=== PATIENT | female | born 1955 | race Caucasian/White ===

== ENCOUNTER 2018-02-07 18:02 | Emergency (ER) | payer BC, OTHER ==
[2018-02-07 19:07] VITALS: BMI 31.9
--- NOTE | 2018-02-07 19:35 | PDOC ---
History of Present Illness - General Chief Complaint: Diarrhea Stated Complaint: DIARRHEA - History of Present Illness Initial Comments: The patient is a 62F w/ a history of HTN, HLD, and cerebral aneurysm x3 s/p coil x2 who presents for evaluation of 3 weeks of nausea and watery diarrhea. She reports that after every meal she, approximately 15-30 min later she will have a diarrheal episode. She endorses associated pelvic cramping during bowel movements but otherwise denies abdominal pain. She denies fevers, emesis, or blood in her stool. She is unsure if her stool is foul smelling 2/2 smoking while in the bathroom. She denies ever having had this happen before. She denies a history of IBS, diverticulitis, or diarrheal disease. She reports a history of constipation. She reports having a colonoscopy several months ago that was normal per the patient. She denies chest pain, SOB, dysuria, hematuria, or changes in sensation. She denies sick contacts 02/07/18 19:55 Past History - Past Medical History Allergies/Adverse Reactions: Allergies Allergy/AdvReac Type Severity Reaction Status Date / Time No Known Allergies Allergy Verified 02/07/18 19:08 COPD: No HTN: Yes Hypercholesterolemia: Yes Psychiatric Problems: Yes (anxiety) Other medical history: brain aneursysm x 3 - Suicide/Smoking/Psychosocial Hx Smoking History: Never smoked Have you smoked in the past 12 months: No Information on smoking cessation initiated: No Hx Alcohol Use: No Drug/Substance Use Hx: No Substance Use Type: None Review of Systems - Review of Systems Able to Perform ROS?: Yes Comments:: GENERAL/CONSTITUTIONAL: No fever or chills. No weakness HEAD, EYES, EARS, NOSE AND THROAT: No change in vision. No ear pain or discharge. No sore throat CARDIOVASCULAR: No chest pain or shortness of breath RESPIRATORY: No cough, wheezing, or hemoptysis GASTROINTESTINAL: per HPI GENITOURINARY: No dysuria, frequency, or change in urination MUSCULOSKELETAL: No joint or muscle swelling or pain. No neck or back pain SKIN: No rash NEUROLOGIC: No headache, vertigo, loss of consciousness, or change in strength/ sensation ENDOCRINE: No increased thirst. No abnormal weight change HEMATOLOGIC/LYMPHATIC: No anemia, easy bleeding, or history of blood clots ALLERGIC/IMMUNOLOGIC: No hives or skin allergy 02/07/18 19:35 *Physical Exam - Vital Signs Last Vital Signs Temp Pulse Resp BP Pulse Ox 98.7 F 69 17 142/64 97 02/07/18 19:03 02/07/18 19:03 02/07/18 19:03 02/07/18 19:03 02/07/18 19:03 - Physical Exam Comments: GENERAL: Awake, alert, and fully oriented, in no acute distress HEAD: No signs of trauma, normocephalic, atraumatic EYES: PERRL, EOMI, sclera anicteric, conjunctiva clear ENT: Hearing grossly normal, nares patent, oropharynx clear without exudates NECK: Normal ROM, supple LUNGS: No distress, speaks full sentences, mild b/l diffuse wheeze HEART:Regular rate and rhythm, normal S1 and S2, no murmurs appreciated, peripheral pulses normal and equal bilaterally ABDOMEN: Soft, LLQ TTP without rebound or guarding, not distended, normoactive bowel sounds EXTREMITIES : Normal inspection, Normal range of motion, no edema. No clubbing or cyanosis NEUROLOGICAL: Cranial nerves II through XII grossly intact. Normal speech, normal gait, no focal sensorimotor deficits SKIN: Warm, Dry, normal turgor, no rashes or lesions noted 02/07/18 19:35 ED Treatment Course - LABORATORY CBC & Chemistry Diagram: 02/07/18 20:15 02/07/18 20:15 Medical Decision Making - Medical Decision Making The patient is a 62F w/ a history of HTN, HLD, and cerebral aneurysm who present for evaluation of 3 weeks of nausea and diarrhea ED Course CMP, CBC, Lipase CT A&P w/ contrast 1L NS 02/07/18 20:00 Lytes wnl Hgb 13.9, no anemia No leukocytosis 02/07/18 21:24 CT with evidence of ascending and transverse mucosal thickening which could represent early focal colitis. Diverticula w/o diverticulitis. Patient w/o fever Pain resolved Patient to follow up with her PCP tomorrow. Will provide patient with results of her CT and GI referral as well. Work note provided Plan for D/C w/ PCP and GI f/u Return precautions given Plan discussed with patient who is in agreement and verbalized understanding Dispo: Home 02/07/18 23:32 *DC/Admit/Observation/Transfer Diagnosis at time of Disposition: Colitis Diarrhea Qualifiers: Diarrhea type: unspecified type Qualified Code(s): R19.7 - Diarrhea, unspecified - Discharge Dispostion Disposition: HOME Condition at time of disposition: Improved Decision to Admit order: No - Referrals Referrals: Abdirashid Rubin [Primary Care Provider] - Melvin Yee MD [Staff Physician] - - Patient Instructions Printed Discharge Instructions: DI for Colitis Additional Instructions: You were seen in the Emergency Department today for evaluation of diarrhea. Please review the handouts provided at discharge. Please follow up with your primary care provider and Gastroenterology. Return to the Emergency Department if you develop fevers/chills, vomiting, worsening diarrhea, or any new/ concerning symptoms. - Post Discharge Activity Forms/Work/School Notes: Back to Work
[2018-02-07] MEDS ORDERED: SODIUM CHLORIDE 0.9% 500 ML INFUS.BAG IV ONE (19:50)
[2018-02-07 20:26] LABS: HEMATOCRIT 40.5 % (32.4-45.2); HEMOGLOBIN 13.9 GM/dL (10.7-15.3); MCH 32.1 pg (25.7-33.7); MCHC 34.4 g/dl (32.0-36.0); MEAN CELL VOLUME 93.2 fl (80-96); MEAN PLT VOLUME 9.2 fl (7.5-11.1); PLATELET COUNT 254 K/MM3 (134-434); RBC 4.35 M/mm3 (3.60-5.2); RDW 13.3 % (11.6-15.6); WHITE BLOOD COUNT 10.2 K/mm3 (4.0-10.0)
[2018-02-07 21:08] LABS: ALBUMIN 3.8 g/dl (3.4-5.0); ALK PHOS 74 U/L (45-117); ANION GAP 5 MMOL/L (8-16); BILIRUBIN,TOTAL 0.4 mg/dL (0.2-1); BLOOD UREA NITROGEN 12 mg/dL (7-18); CALCIUM 8.9 mg/dL (8.5-10.1); CHLORIDE 113 mmol/L (98-107); CO2 26 mmol/L (21-32); CREATININE 0.8 mg/dL (0.55-1.3); GLUCOSE,RANDOM 115 mg/dL (74-106); LIPASE 143 U/L (73-393); POTASSIUM 3.8 mmol/L (3.5-5.1); SGOT/AST 16 U/L (15-37); SGPT/ALT 17 U/L (13-61); SODIUM 143 mmol/L (136-145); TOT PROT 7.2 g/dl (6.4-8.2)
--- NOTE | 2018-02-07 21:52 | PDOC ---
Attending Attestation - [facility] HPI: 02/07/18 23:01 The patient is a 62 year old female, with a significant past medical history of HTN, HLD, and brain aneurysm x3, who presents to the emergency department with 3 weeks of nausea and diarrhea. She reports loose,watery stool about 30-40 minutes after PO intake. She reports associated lower abdominal pain with bowel movements. She states she saw her PCP this week who prescribed Flagyl which she reportedly picked up tdoay but has not started. She states she is not nauseous now. She reports her last BM was loose, nonbloody at approximately 4:30PM. The patient denies chest pain, shortness of breath, headache and dizziness. The patient denies fever, chills, vomit, and constipation. The patient denies dysuria, frequency, urgency and hematuria. Allergies: NKDA - Physicial Exam PE: 02/07/18 23:02 GENERAL: Well developed, well nourished. Awake and alert. No acute distress. HEENT: Normocephalic, atraumatic. PERRLA, EOMI. No conjunctival pallor. Sclera are non- icteric. Moist mucous membranes. Oropharynx is clear. NECK: Supple. Full ROM. No JVD. Carotid pulses 2+ and symmetric, without bruits. No thyromegaly. No lymphadenopathy. CARDIOVASCULAR: Regular rate and rhythm. No murmurs, rubs, or gallops. Distal pulses are 2+ and symmetric. PULMONARY: No evidence of respiratory distress. Lungs clear to auscultation bilaterally. No wheezing, rales or rhonchi. ABDOMINAL: Soft. Non-tender. Non-distended. No rebound or guarding. No organomegaly. Normoactive bowel sounds. MUSCULOSKELETAL Normal range of motion at all joints. No bony deformities or tenderness. No CVA tenderness. EXTREMITIES: No cyanosis. No clubbing. No edema. No calf tenderness. SKIN: Warm and dry. Normal capillary refill. No rashes. No jaundice. NEUROLOGICAL: Alert, awake, appropriate. Cranial nerves 2-12 intact. Normoreflexic in the upper and lower extremities. Normal speech. Toes are down-going bilaterally. Gait is normal without ataxia. PSYCHIATRIC: Cooperative. Good eye contact. Appropriate mood and affect. - Medical Decision Making EXAM: CT abdomen and pelvis with IV contrast. Impression: 1. Single sigmoid diverticulum, without evidence of diverticulitis. 2. Trace of free fluid within the pelvis which is not a normal finding in a postmenopausal woman. 3. Questionable mild circumferential mucosal thickening involving the ascending and transverse colons which could represent very early focal colitis. The differential diagnosis would include inflammatory etiologies such as Crohn's, infectious etiology, or ischemic. Clinical correlation is recommended. 4. Otherwise, unremarkable CT of the abdomen and pelvis. THIS DOCUMENT HAS BEEN ELECTRONICALLY SIGNED Chris Guillen MD 02/07/2018 21:46 EST 02/07/18 23:02 Documentation prepared by Grecia Raymundo, acting as medical chief technician for Eva Rodríguez MD <Grecia Raymundo - Last Filed: 02/07/18 23:01> - Resident Resident Name: Manuel Woods - ED Attending Attestation I have performed the following: I have examined & evaluated the patient, The case was reviewed & discussed with the resident, I agree w/resident's findings & plan, Exceptions are as noted - Medical Decision Making 02/07/18 23:40 she is not vomiting and has an appt with her PCP tomorrow -she has benign exam and is currently comfortable -no fever and her labs are essentially unremarkable -she already has a prescription for flagyl IMP probable early colitis plan tomorrow see PCP and take antibiotics <Eva Rodríguez - Last Filed: 02/07/18 23:50>
[2018-02-08 00:10] VITALS: BP 131/89; PULSE 70; TEMP 97.9
== END 2018-02-08 00:10 | disposition home or self-care (01) ==
LOC: JER 18:02
DX: K52.9 Noninfective gastroenteritis and colitis, unspecified (principal); I10 Essential (primary) hypertension; E78.5 Hyperlipidemia, unspecified; F41.9 Anxiety disorder, unspecified; F17.210 Nicotine dependence, cigarettes, uncomplicated; Z86.79 Personal history of other diseases of the circulatory system
CPT/HCPCS: 36415; 74177-TC; 80053; 83690; 85027; 99282-25

== ENCOUNTER 2018-04-20 21:24 | Emergency (ER) | payer BC, OTHER ==
[2018-04-20] MEDS ORDERED: ALBUTEROL SO4 2.5/IPRATROPIUM 0.5 INH SOL 3 ML VIAL.NEB. NEB ONE ×2 (21:34→22:16)
[2018-04-20 21:36] VITALS: BP 98/68; PULSE 76; TEMP 97.6; BMI 30.7
--- NOTE | 2018-04-20 21:36 | PDOC ---
Rapid Medical Evaluation Chief Complaint: Respiratory Medical Evaluation: Allergies Allergy/AdvReac Type Severity Reaction Status Date / Time No Known Allergies Allergy Verified 02/07/18 19:08 04/20/18 21:31 I have performed a brief in-person evaluation of this patient. The patient presents with a chief complaint of:cough / no fevers/ + phlegm clear/ Pertinent physical exam findings: cough / deep cough with wheezing I have ordered the following: CXR/ Duoneb The patient will proceed to the ED for further evaluation. Discharge Disposition - Diagnosis Cough - Referrals - Patient Instructions - Post Discharge Activity
[2018-04-20] MEDS ORDERED: DEXAMETHASONE LIQUID 0.5 MG/5 ML 240 ML BULK BOTTLE PO ONE (22:10)
--- NOTE | 2018-04-20 22:13 | PDOC ---
History of Present Illness - General Chief Complaint: Respiratory Stated Complaint: Shortness of Breath Time Seen by Provider: 04/20/18 22:06 - History of Present Illness Initial Comments: 04/20/18 22:12 63-year-old female with intermittent cough getting worse over the last month. She has a past medical history significant for hypertension. She was treated for bronchitis with Bactrim which did not help her. She was also given a 3 day course of prednisone which was not helpful. She continues to cough. 04/20/18 22:12 Past History - Past Medical History Allergies/Adverse Reactions: Allergies Allergy/AdvReac Type Severity Reaction Status Date / Time No Known Allergies Allergy Verified 02/07/18 19:08 Home Medications: Ambulatory Orders Albuterol Sulfate Inhaler - [Ventolin HFA Inhaler -] 1 - 2 inh PO Q4H PRN #1 inhaler 04/20/18 Azithromycin [Zithromax -] 250 mg PO UTDICT #6 tab 04/20/18 COPD: No HTN: Yes Hypercholesterolemia: Yes Psychiatric Problems: Yes (anxiety) Other medical history: ANEURYSM X 2 - Suicide/Smoking/Psychosocial Hx Smoking History: Never smoked Have you smoked in the past 12 months: No Information on smoking cessation initiated: No Hx Alcohol Use: No Drug/Substance Use Hx: No Substance Use Type: None Review of Systems - Review of Systems Constitutional: No: Fever Respiratory: Yes: Cough, Wheezing *Physical Exam - Vital Signs Last Vital Signs Temp Pulse Resp BP Pulse Ox 97.6 F 76 16 98/68 96 04/20/18 21:31 04/20/18 21:31 04/20/18 21:31 04/20/18 21:31 04/20/18 21:31 - Physical Exam Comments: 04/20/18 22:12 HEAD: NC/AT EYES: Conjuntiva clear Ears: Canals and TM's normal NOSE: No d/c THROAT: Moist mucous membrances, oral pharanx clear, uvula midline NECK: Supple without adenopathy CARDIAC: S1 S2 LUNGS: Diffuse wheezing ABDOMEN: Soft NT ND MS: Full ROM in all joints without edema NEUROLOGIC: No gross sensory or motor deficits, NVID SKIN: Normal color and temperature no lesions or rashes Moderate Sedation - Procedure Monitoring Vital Signs: Procedure Monitoring Vital Signs Temperature 97.6 F 04/20/18 21:31 Pulse Rate 76 04/20/18 21:31 Respiratory Rate 16 04/20/18 21:31 Blood Pressure 98/68 04/20/18 21:31 O2 Sat by Pulse Oximetry (%) 96 04/20/18 21:31 Medical Decision Making - Medical Decision Making 04/20/18 22:31 cxr nad 04/20/18 22:56 cleared after 3rd duo neb *DC/Admit/Observation/Transfer Diagnosis at time of Disposition: Cough, Asthmatic bronchitis - Discharge Dispostion Disposition: HOME Condition at time of disposition: Improved Decision to Admit order: No - Referrals Referrals: Abdirashid Rubin [Primary Care Provider] - - Patient Instructions Printed Discharge Instructions: DI for Acute Bronchitis Additional Instructions: Return to the emergency room should symptoms worsen or go unresolved. Please the use the inhaler as directed. Every 4 hours only if you feel you are wheezing and you are short of breath. Please take the antibiotics as directed and finish the entire course. Follow up with her primary care physician in 2-3 days for further evaluation and treatment options. - Post Discharge Activity
[2018-04-20] MEDS ORDERED: DEXAMETHASONE SOD PHOSPHATE 10 MG/1 ML VIAL ONE (22:16)
[2018-04-20] MEDS: ALBUTEROL SO4 2.5/IPRATROPIUM 0.5 INH SOL 3 ML VIAL.NEB. NEB SCH ×3 (22:27→22:45)
== END 2018-04-20 23:07 | disposition home or self-care (01) ==
LOC: JERFT 21:24
PROC: 3E0F7GC Introduction of Other Therapeutic Substance into Respiratory Tract, Via Natural or Artificial Opening (ICD-10-PCS; principal; 2018-04-20)
PROC: 3E0F7GC Introduction of Other Therapeutic Substance into Respiratory Tract, Via Natural or Artificial Opening (ICD-10-PCS; 2018-04-20)
PROC: 3E0F7GC Introduction of Other Therapeutic Substance into Respiratory Tract, Via Natural or Artificial Opening (ICD-10-PCS; 2018-04-20)
DX: J45.901 Unspecified asthma with (acute) exacerbation (principal)
CPT/HCPCS: 71046-TC-FY; 99281-25

== ENCOUNTER 2018-05-08 13:41 | Observation (INO) | payer BC, OTHER ==
[2018-05-08] MEDS ORDERED: methylPREDNISolone NA SUCC 125 MG/2 ML VIAL ONE (13:46)
[2018-05-08] MEDS ORDERED: ALBUTEROL SO4 2.5/IPRATROPIUM 0.5 INH SOL 3 ML VIAL.NEB. NEB ONE ×3 (13:49→19:54)
[2018-05-08] MEDS ORDERED: methylPREDNISolone NA SUCC 125 MG/2 ML VIAL IVPUSH ONE (13:49)
--- NOTE | 2018-05-08 13:54 | PDOC ---
History of Present Illness - General Chief Complaint: Respiratory Distress Stated Complaint: DIFFICULTY BREATHING Time Seen by Provider: 05/08/18 13:52 - History of Present Illness Initial Comments: 05/08/18 14:44 The patient is a 63 year old female with a history of HTN, HLD, who presents for evaluation of shortness of breath. The patient reports acute onset of worsening difficulty breathing with associated wheezing 1-2 hours prior to presentation to the ED. She notes that she has had similar symptoms in the past most recent of which was 2-3 weeks ago. She states that she received steroids and nebulizer treatments at that time with improvement in her symptoms. She states that she has never had a formal diagnosis of asthma or COPD but does not that she is a daily smoker. She otherwise denies fevers, chills, chest pain, nausea, vomiting, abdominal pain, or changes with urination or bowel movements. Past History - Past Medical History Allergies/Adverse Reactions: Allergies Allergy/AdvReac Type Severity Reaction Status Date / Time No Known Allergies Allergy Verified 05/08/18 13:48 Home Medications: Ambulatory Orders Alprazolam [Xanax] 0.25 mg PO PRN PRN 05/08/18 Amlodipine Besylate [Norvasc -] 5 mg PO DAILY 05/08/18 Carvedilol 12.5 mg PO BID 05/08/18 Sertraline HCl 75 mg PO DAILY 05/08/18 Simvastatin 20 mg PO HS 05/08/18 Albuterol Sulfate Inhaler - [Ventolin HFA Inhaler -] 1 - 2 inh PO Q4H PRN #1 inhaler 05/09/18 Nicotine Patch [Nicoderm Patch -] 21 mg TD DAILY 10 Days #10 patch 05/09/18 Pantoprazole Sodium [Protonix -] 40 mg PO DAILY #10 tablet.ec 05/09/18 levoFLOXacin [Levaquin] 750 mg PO DAILY 4 Days #4 tab 05/09/18 predniSONE [Deltasone -] 40 mg PO DAILY 4 Days #8 tablet 05/09/18 COPD: No HTN: Yes Hypercholesterolemia: Yes Psychiatric Problems: Yes (anxiety) - Immunization History Immunization Up to Date: Yes - Suicide/Smoking/Psychosocial Hx Smoking History: Current every day smoker Have you smoked in the past 12 months: No Information on smoking cessation initiated: No Hx Alcohol Use: No Drug/Substance Use Hx: No Substance Use Type: None Review of Systems - Review of Systems Comments:: 05/08/18 14:47 Constitutional: No fevers, chills, fatigue, malaise HEENT: No Rhinorrhea, nasal congestion, visual changes Cardiovascular: No chest pain, syncope, palpitations, lightheadedness Respiratory: Cough, SOB. No Hemoptysis, Gastrointestinal: No Abdominal pain, Nausea, Vomiting, Constipation, Diarrhea, Melena Genitourinary: No Dysuria, Frequency, Urgency, Hesitancy, Hematuria, Flank pain Musculoskeletal: No Myalgia, arthralgia Skin: No rashes, itching, bruising, pallor Neurologic: No Headache, Dizziness, Numbness, Weakness, or Tingling Psychiatric: No Hallucinations. No SI or HI *Physical Exam - Vital Signs Last Vital Signs Temp Pulse Resp BP Pulse Ox 98.3 F 112 H 22 H 129/90 94 L 05/08/18 13:48 05/08/18 13:48 05/08/18 13:48 05/08/18 13:48 05/08/18 13:48 - Physical Exam Comments: 05/08/18 14:47 General Appearance: Nourished. No Apparent Distress HEENT: No Pharyngeal Erythema, Tonsillar Exudate, Tonsillar Erythema Neck: No Cervical Lymphadenopathy Respiratory/Chest: Diffuse inspiratory and expiratory wheezing noted on exam. No Crackles, Rales, Rhonchi, Cardiovascular: Regular Rhythm, Regular Rate. No Murmur, Gallops, Rubs Gastrointestinal/Abdominal: Normal Bowel Sounds, Soft. No Guarding, Rebound, Tenderness Musculoskeletal: No CVA Tenderness Extremity: Normal Capillary Refill Integumentary: Normal Color, Dry, Warm Neurologic: Fully Oriented, Alert, Normal Mood/Affect, Normal Response, Moderate Sedation - Procedure Monitoring Vital Signs: Procedure Monitoring Vital Signs Temperature 98.3 F 05/08/18 13:48 Pulse Rate 112 H 05/08/18 13:48 Respiratory Rate 22 H 05/08/18 13:48 Blood Pressure 129/90 05/08/18 13:48 O2 Sat by Pulse Oximetry (%) 94 L 05/08/18 13:48 Heart Score/ECG Review #1 ECG reviewed & interpreted by me at: 14:48 General ECG Interpretation: Sinus Rhythm, Normal Rate, Normal Intervals, No acute ischemic changes ED Treatment Course - LABORATORY CBC & Chemistry Diagram: 05/09/18 06:35 05/09/18 06:35 - RADIOLOGY Radiology Studies Ordered: Category Date Time Status CHEST X-RAY PORTABLE* [RAD] Stat Radiology 05/08/18 13:49 Ordered Medical Decision Making - Medical Decision Making 05/08/18 14:48 The patient is a 63 year old female with a history of HTN, HLD, who presents for evaluation of shortness of breath. Differential includes but is not limited to: Reactive Airway Disease, COPD, Pneumonia, Infectious, Metabolic Derangement. Given the patient's history and physical exam, we will obtain a cbc, cmp, chest plain film, ekg to evaluate further. We will treat with duonebs and solumedrol and continue to monitor and reassess while here in the ED. 05/08/18 16:43 CBC, cmp were unremarkable. Chest plain film is unremarkable. The patient continues to have diffuse expiratory wheezing on exam despite medicating with solumedrol and duonebs. The patient continues to desaturate to 92% on RA despite medication here in the ED. The patient will require admission for further management given her persistent symptoms despite treatment here in the ED. We discussed the case with the admitting team who accepted the patient for admission. *DC/Admit/Observation/Transfer Diagnosis at time of Disposition: Shortness of breath - Discharge Dispostion Disposition: HOME Condition at time of disposition: Good Decision to Admit order: Yes - Prescriptions - Referrals - Patient Instructions - Post Discharge Activity
--- NOTE | 2018-05-08 14:00 | PDOC ---
Attending Attestation - Resident Resident Name: Hilario Vernon - HPI HPI: 05/08/18 14:32 Pt presents to the ED complaining of a several day history of wheezing, shortness of breath and non productive cough that became acutely worse today. Denies fever. Has used albuterol inhaler 3 times in the last hour with no relief. Patient is a smoker, but denies prior history of lung pathology. - Physicial Exam PE: 05/08/18 14:35 Pt is alert and tachypneic and appears to be in moderate respiratory distress. + diffuse wheezing bilaterally with good air entry. Speaking in complete sentences. - Medical Decision Making 05/08/18 14:36 Pt presents to the ED complaining of wheezing and shortness of breath. Improving with nebs and steroids in the ED. Labs are within normal limits. No history of asthma or COPD, but is a smoker and has had multiple episodes of wheezing that improve with albuterol. Will check CXR, continue neb treatments, discharge home with nebs and steroids vs admission for continued nebs and steroids depending on ED course. 05/08/18 14:36
[2018-05-08 14:04] LABS: BASO % 1.5 % (0-2.0); HEMATOCRIT 42.5 % (32.4-45.2); HEMOGLOBIN 14.2 GM/dL (10.7-15.3); LYMPH % 27.6 % (8-40); MCH 31.6 pg (25.7-33.7); MCHC 33.4 g/dl (32.0-36.0); MEAN CELL VOLUME 94.7 fl (80-96); MEAN PLT VOLUME 8.7 fl (7.5-11.1); NEUT % 65.9 % (42.8-82.8); PLATELET COUNT 221 K/MM3 (134-434); RBC 4.48 M/mm3 (3.60-5.2)
[2018-05-08 14:36] LABS: ALBUMIN 3.8 g/dl (3.4-5.0); ALK PHOS 71 U/L (45-117); ANION GAP 5 MMOL/L (8-16); BILIRUBIN,TOTAL 0.5 mg/dL (0.2-1); BLOOD UREA NITROGEN 13 mg/dL (7-18); CALCIUM 8.3 mg/dL (8.5-10.1); CHLORIDE 110 mmol/L (98-107); CO2 26 mmol/L (21-32); CREATININE 0.9 mg/dL (0.55-1.3); GLUCOSE,RANDOM 142 mg/dL (74-106); SGOT/AST 19 U/L (15-37); SGPT/ALT 20 U/L (13-61); SODIUM 141 mmol/L (136-145)
[2018-05-08] MEDS ORDERED: ALBUTEROL SO4 0.083% IH SOL 2.5 MG/3 ML VIAL.NEB. NEB ONE ×2 (15:13→15:15)
--- NOTE | 2018-05-08 18:00 | HP ---
CHIEF COMPLAINT: Shortness of breath PCP: Dr. Rubin HISTORY OF PRESENT ILLNESS: Patient is a 63 year old female with history of hypertension, hyperlipidemia, anxiety, cerebral aneurysm (s/p endovascular coil 08/2017) presents with complaint of shortness of breath intermittently for the past month. Initially she was seen by her primary care provider and prescribed Bactrim which she admits compliance with 10 day course, and prednisone 3 day course which she was not compliant with, due to palpitations. She was seen two weeks ago at [facility] for similar symptoms, and was prescribed Azithromycin 5 day course which she admits compliance with, and Albuterol inhaler. Patient noticed shortness of breath this morning after drinking coffee, and was not palliated with Albuterol inhaler. Patient endorses cough productive with white-colored sputum, nasal congestion, and sneezing. Patient denies fevers, chills, or sick contacts. Of note, patient endorses liquid brown diarrhea that has been intermittent for the past 4 months. 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 She endorses three episodes of diarrhea today without ravi blood. Denies vomiting or abdominal pain. ER course was notable for: (1) DuoNebs X3 amps, Solu-Medrol 125mg, Albuterol nebulizer treatment X1 (2) Chest Xray- no acute pathology noted (3) Recent Travel: denies PAST MEDICAL HISTORY: hypertension, hyperlipidemia, anxiety, cerebral aneurysm ( s/p coil 08/2017) PAST SURGICAL HISTORY: bilateral tubal ligation at 23 years old, cerebral aneurysm endovascular coiling in 2017. Social History: Smoking: admits smoking 1/2 -1 whole pack per day for past 40 years. Alcohol: admits drinking socially two - three mixed "fruit-flavored" drinks. Drugs: denies illicit drug use Works: patient pediatric acute care unit nurse with [employer] Family History: No history of malignancy noted. Mother: at 92 years old, dementia Father: in his 80s, ?[place] Allergies: Patient denies any food, or medication allergies. No Known Allergies Allergy (Verified 05/08/18 13:48) HOME MEDICATIONS: Home Medications Medication Instructions Recorded Amlodipine Besylate [Norvasc -] 5 mg PO DAILY 05/08/18 Carvedilol 12.5 mg PO BID 05/08/18 Sertraline HCl 75 mg PO DAILY 05/08/18 Simvastatin 20 mg PO HS 05/08/18 REVIEW OF SYSTEMS CONSTITUTIONAL: Absent: fever, chills, diaphoresis, generalized weakness, malaise, loss of appetite, weight change HEENT: Admits: rhinnorhea, nasal congestion. Absent: throat pain, throat swelling, difficulty swallowing, mouth swelling, ear pain, eye pain, visual changes CARDIOVASCULAR: Absent: chest pain, syncope, palpitations, irregular heart rate, lightheadedness , peripheral edema RESPIRATORY: Admits: cough, shortness of breath. Absent: dyspnea with exertion, orthopnea, wheezing, stridor, hemoptysis GASTROINTESTINAL: Admits: nausea, diarrhea. Absent: abdominal pain, abdominal distension, vomiting , constipation, melena, hematochezia GENITOURINARY: Absent: dysuria, frequency, urgency, hesitancy, hematuria, flank pain, genital pain MUSCULOSKELETAL: Absent: myalgia, arthralgia, joint swelling, back pain, neck pain SKIN: Absent: rash, itching, pallor HEMATOLOGIC/IMMUNOLOGIC: Absent: easy bleeding, easy bruising, lymphadenopathy, frequent infections ENDOCRINE: Absent: unexplained weight gain, unexplained weight loss, heat intolerance, cold intolerance NEUROLOGIC: Absent: headache, focal weakness or paresthesias, dizziness, unsteady gait, seizure, mental status changes, bladder or bowel incontinence PSYCHIATRIC: Absent: anxiety, depression, suicidal or homicidal ideation, hallucinations. PHYSICAL EXAMINATION Vital Signs - 24 hr 05/08/18 05/08/18 13:48 16:11 Temperature 98.3 F 98.2 F Pulse Rate 112 H Pulse Rate [ 77 Apical] Respiratory 22 H 20 Rate Blood Pressure 129/90 Blood Pressure 121/68 [Right Arm] O2 Sat by Pulse 94 L 95 Oximetry (%) GENERAL: Awake, alert, and fully oriented, in no acute distress. HEAD: Normocephalic, atraumatic. EYES: Pupils equal, round and reactive to light. Extraocular movements intact, sclera anicteric B/L. Conjunctiva clear without injection. EARS, NOSE, THROAT: Oropharynx clear without exudates. Moist mucous membranes. NECK: Supple without lymphadenopathy, or JVD LUNGS: Good inspiratory effort and air entry B/L. Expiratory wheezing auscultated left upper and lower lung lobes > right sided. No accessory muscle use. HEART: Regular rate and rhythm, normal S1 and S2 without murmur, rub or gallop. ABDOMEN: Obese. Soft, nontender to light and deep palpation X4 quadrants. Not distended. Normoactive bowel sounds X4 quadrants. No guarding, no rebound tenderness. No hepatomegaly palpated or percussed. MUSCULOSKELETAL: Normal range of motion at all joints. No bony deformities or tenderness. Strength 5/5 B/L upper and lower extremities. UPPER EXTREMITIES: 2+ radial pulses B/L, warm, well-perfused. LOWER EXTREMITIES: 2+ dorsalis pedis pulses B/L, warm, well-perfused. No calf tenderness. No peripheral edema B/L lower extremities. NEUROLOGICAL: Cranial nerves II-XII intact. Normal speech. PSYCHIATRIC: Cooperative. Good eye contact. Appropriate mood and affect upon my encounter. SKIN: Warm, dry, normal turgor, no rashes or lesions noted. Laboratory Results - last 24 hr 05/08/18 05/08/18 05/08/18 13:38 13:38 16:00 WBC 7.0 RBC 4.48 Hgb 14.2 Hct 42.5 MCV 94.7 MCH 31.6 MCHC 33.4 RDW 13.0 Plt Count 221 MPV 8.7 Absolute Neuts (auto) 4.6 Neutrophils % 65.9 Lymphocytes % 27.6 Monocytes % 5.0 Eosinophils % 0.0 Basophils % 1.5 Nucleated RBC % 0 Sodium 141 Potassium 4.0 Chloride 110 H Carbon Dioxide 26 Anion Gap 5 L BUN 13 Creatinine 0.9 Creat Clearance w eGFR > 60 Random Glucose 142 H Calcium 8.3 L Total Bilirubin 0.5 AST 19 ALT 20 Alkaline Phosphatase 71 Total Protein 7.0 Albumin 3.8 Influenza A (Rapid) Negative Influenza B (Rapid) Negative ASSESSMENT/PLAN: Patient is a 63 year old female with history of hypertension, hyperlipidemia, anxiety, cerebral aneurysm (s/p endovascular coil 08/2017) presents with complaint of shortness of breath intermittently for the past month. Shortness of breath -Likely COPD exacerbation secondary to upper respiratory infection given patient's cough, sneezing, and congestion vs bronchitis. -Chest Xray shows no acute pathology -Begin Solu-Medrol 60mg IV Q8H -Duonebs 1amp Q6H for shortness of breath -Levofloxacin 750mg IV daily -Pulmonology consult (Dr. Roca) Chronic diarrhea -Patient has been following up with her employment and claims aide. Colonoscopy performed last week. Will attempt to obtain records. -Monitor bowel movements Hypertension -Norvasc 5mg PO daily -Coreg 12.5mg PO BID Hyperlipidemia -Simvastatin 20mg PO daily Anxiety -Sertaline 75mg PO daily Nicotine dependence -Patient endorses she would like help quitting smoking. -Nicotine patch 21mg TD daily History of brain aneurysm -S/P endovascular coil. Patient follows up outpatient FEN -No IV fluids indicated. -No electrolyte abnormalities. Follow CMP -Sodium controlled diet Prophylaxis -Lovenox 40mg subq daily -Protonix 40mg PO daily Disposition -Observation in medical-surgical floor. Visit type - Emergency Visit Emergency Visit: Yes ED Registration Date: 05/08/18 Care time: The patient presented to the Emergency Department on the above date and was hospitalized for further evaluation of their emergent condition. - New Patient This patient is new to me today: Yes Date on this admission: 05/08/18 - Critical Care Critical Care patient: No
[2018-05-08] MEDS ORDERED: ALBUTEROL SO4 2.5/IPRATROPIUM 0.5 INH SOL 3 ML VIAL.NEB. NEB PRN ×3 (19:08→19:18)
--- NOTE | 2018-05-08 19:10 | PN ---
Teaching Attending Note Name of Resident: Hammad Kaur ATTENDING PHYSICIAN STATEMENT I saw and evaluated the patient. I reviewed the resident's note and discussed the case with the resident. I agree with the resident's findings and plan as documented. SUBJECTIVE: Dyspnea, chest tightness improving. Cough with white sputum. No hemoptysis. No fever. OBJECTIVE: Afebrile, Hemodynamically Stable. Last Vital Signs Temp Pulse Resp BP Pulse Ox 97.8 F 70 20 106/78 96 05/08/18 18:34 05/08/18 18:34 05/08/18 16:11 05/08/18 18:34 05/08/18 18:34 HEENT - Atramatic, Normocephalic Heart - S1, S2, RRR Lungs - bilateral polyphonic wheeze Abdomen - soft, non-tender. Bowel Sounds normal. Extremities - No edema. No calf tenderness. Neuro - AAO x 3. Tone/Power normal all 4 extremities. Laboratory Results - last 24 hr 05/08/18 05/08/18 05/08/18 13:38 13:38 16:00 WBC 7.0 RBC 4.48 Hgb 14.2 Hct 42.5 MCV 94.7 MCH 31.6 MCHC 33.4 RDW 13.0 Plt Count 221 MPV 8.7 Absolute Neuts (auto) 4.6 Neutrophils % 65.9 Lymphocytes % 27.6 Monocytes % 5.0 Eosinophils % 0.0 Basophils % 1.5 Nucleated RBC % 0 Sodium 141 Potassium 4.0 Chloride 110 H Carbon Dioxide 26 Anion Gap 5 L BUN 13 Creatinine 0.9 Creat Clearance w eGFR > 60 Random Glucose 142 H Calcium 8.3 L Total Bilirubin 0.5 AST 19 ALT 20 Alkaline Phosphatase 71 Total Protein 7.0 Albumin 3.8 Influenza A (Rapid) Negative Influenza B (Rapid) Negative Home Medications Medication Instructions Recorded Amlodipine Besylate [Norvasc -] 5 mg PO DAILY 05/08/18 Carvedilol 12.5 mg PO BID 05/08/18 Sertraline HCl 75 mg PO DAILY 05/08/18 Simvastatin 20 mg PO HS 05/08/18 ASSESSMENT AND PLAN: 63 year old female wit history of HTN, HLD, Anxiety, Cerebral Aneurysm (s/p Coil 08/19), smoker, presents with several day history of increasing shortness of breath, wheeze, cough productive of white sputum without fever/chills/ hemoptysis/chest pain/orthopnea/PND. 1. Acute Bronchitis, possible COPD exacerbation, refractory to out-patient management with Abx No prior diagnosis of Asthma or COPD but smoker. Flu negative CXR - no acute cardiopulmonary findings. Will treat with regular Bronchodilator Nebs, IV Solumedrol, and Levofloxacin. Pulm eval for evaluation and to establish relationship for out-patient follow up and work-up including PFTs. 2. Chronic Diarrhea For past 4 months. Evaluated by GI and recently had Colonoscopy [address] Ballard, result unknown. 3. Hypertension - Continue Norvasc and Coreg 4. Hyperlipidemia - continue Simvastatin. 5. Anxiety - Continue Sertaline. DVT Px - Lovenox SQ GI Px - Protonix.
[2018-05-08] MEDS ORDERED: ALBUTEROL SO4 2.5/IPRATROPIUM 0.5 INH SOL 3 ML VIAL.NEB. NEB SCH (19:15)
[2018-05-08] MEDS ORDERED: ENOXAPARIN NA (PORCINE) 40 MG/0.4 ML DISP.SYRIN SQ SCH (19:15)
[2018-05-08] MEDS ORDERED: PANTOPRAZOLE 40 MG TABLET (FP) ONE (19:54)
[2018-05-08] MEDS ORDERED: methylPREDNISolone NA SUCC 40 MG/1 ML VIAL ONE (19:54)
[2018-05-08] MEDS: methylPREDNISolone NA SUCC 40 MG/1 ML VIAL IVPUSH SCH (20:13)
[2018-05-08] MEDS: ALBUTEROL SO4 2.5/IPRATROPIUM 0.5 INH SOL 3 ML VIAL.NEB. NEB SCH (20:13)
[2018-05-08] MEDS: PANTOPRAZOLE 40 MG TABLET (FP) PO SCH (20:13)
[2018-05-08] MEDS ORDERED: CARVEDILOL 12.5 MG TABLET (FP) ONE (21:26)
[2018-05-08] MEDS ORDERED: ATORVASTATIN CA 10 MG TABLET (FP) ONE (21:26)
[2018-05-08] MEDS: CARVEDILOL 12.5 MG TABLET (FP) PO SCH (21:35)
[2018-05-08] MEDS ORDERED: ATORVASTATIN CA 10 MG TABLET (FP) PO SCH (22:00)
[2018-05-08 23:23] VITALS: BMI 31.2
[2018-05-09] MEDS: methylPREDNISolone NA SUCC 40 MG/1 ML VIAL IVPUSH SCH ×2 (02:28→11:05)
[2018-05-09] MEDS: ALBUTEROL SO4 2.5/IPRATROPIUM 0.5 INH SOL 3 ML VIAL.NEB. NEB SCH ×2 (09:47→12:17)
[2018-05-09] MEDS ORDERED: ENOXAPARIN NA (PORCINE) 40 MG/0.4 ML DISP.SYRIN SQ SCH (10:00)
[2018-05-09] MEDS ORDERED: SERTRALINE HCL 25 MG TABLET (FP) PO SCH (10:00)
[2018-05-09] MEDS ORDERED: NICOTINE 21 MG/24 HOURS TOPICAL PATCH TD SCH (10:00)
[2018-05-09] MEDS ORDERED: amLODIPine BESYLATE 5 MG TABLET (FP) PO SCH (10:00)
[2018-05-09] MEDS: CARVEDILOL 12.5 MG TABLET (FP) PO SCH (11:05)
[2018-05-09] MEDS: PANTOPRAZOLE 40 MG TABLET (FP) PO SCH (11:05)
[2018-05-09] MEDS ORDERED: predniSONE 20 MG TABLET (UD) PO SCH (12:00)
--- NOTE | 2018-05-09 12:17 | DS ---
Physical Exam: SUBJECTIVE: Patient seen and examined OBJECTIVE: Vital Signs Period Temp Pulse Resp BP Sys/Wade Pulse Ox Last 24 Hr 97.8 F-98.6 F 67-112 19-22 106-158/66-90 94-98 HEENT - Atramatic, Normocephalic Heart - S1, S2, RRR Lungs - good air entry bilaterally - no wheeze/crackles Abdomen - soft, non-tender. Bowel Sounds normal. Extremities - No edema. No calf tenderness. Neuro - AAO x 3. Tone/Power normal all 4 extremities. Laboratory Results - last 24 hr 05/08/18 05/08/18 05/08/18 13:38 13:38 16:00 WBC 7.0 RBC 4.48 Hgb 14.2 Hct 42.5 MCV 94.7 MCH 31.6 MCHC 33.4 RDW 13.0 Plt Count 221 MPV 8.7 Absolute Neuts (auto) 4.6 Neutrophils % 65.9 Lymphocytes % 27.6 Monocytes % 5.0 Eosinophils % 0.0 Basophils % 1.5 Nucleated RBC % 0 Sodium 141 Potassium 4.0 Chloride 110 H Carbon Dioxide 26 Anion Gap 5 L BUN 13 Creatinine 0.9 Creat Clearance w eGFR > 60 Random Glucose 142 H Calcium 8.3 L Total Bilirubin 0.5 AST 19 ALT 20 Alkaline Phosphatase 71 Total Protein 7.0 Albumin 3.8 Influenza A (Rapid) Negative Influenza B (Rapid) Negative Date of Admission:05/08/18 Date of Discharge: 05/09/18 Minutes to complete discharge: 45 Discharge Summary Reason For Visit: SHORTNESS OF BREATH Current Active Problems Shortness of breath (Acute) Hospital Course: 63 year old female wit history of HTN, HLD, Anxiety, Cerebral Aneurysm (s/p Coil 08/19), smoker, presents with several day history of increasing shortness of breath, wheeze, cough productive of white sputum without fever/chills/ hemoptysis/chest pain/orthopnea/PND. She was admitted and treated for acute bronchitis with regular bronchodilator duonebs, levofloxacin and IV Solumedrol. Her clinical condition significantly improved, currently comfortable on room air , with good air entry and no further wheeze. She is medically stable for discharge on 4 additional days of antibiotic therapy, prednisone, and Albuterol via Inhaler. 1. Acute Bronchitis, possible COPD exacerbation, refractory to out-patient management with Abx No prior diagnosis of Asthma or COPD but smoker. Flu negative CXR - no acute cardiopulmonary findings. Responded well to Bronchodilator Nebs, IV Solumedrol, and Levofloxacin, currently breathing comfortably without wheeze. For Pulm eval for out-patient PFTs. Medically stable for discharge on 4 days Abx, Steroid and Albuterol via INH. 2. Chronic Diarrhea For past 4 months. Evaluated by GI and recently had Colonoscopy [address] Ballard, result unknown. For GI follow up on discharge. Abdomen benign. No infective symptoms. 3. Hypertension - Continue Norvasc and Coreg 4. Hyperlipidemia - continue Simvastatin. 5. Anxiety - Continue Sertaline. Medically stable for discharge with significantly improved respiratory status. Condition: Good - Instructions Diet, Activity, Other Instructions: Harmful effects of smoking counselling with offer of nicotine patch Continue Levofloxacin and Prednisone for 4 additional days Referrals: Abdirashid Rubin [Primary Care Provider] - Disposition: HOME - Home Medications Comprehensive Discharge Medication List: Ambulatory Orders Alprazolam [Xanax] 0.25 mg PO PRN PRN 05/08/18 Amlodipine Besylate [Norvasc -] 5 mg PO DAILY 05/08/18 Carvedilol 12.5 mg PO BID 05/08/18 Sertraline HCl 75 mg PO DAILY 05/08/18 Simvastatin 20 mg PO HS 05/08/18 Albuterol Sulfate Inhaler - [Ventolin HFA Inhaler -] 1 - 2 inh PO Q4H PRN #1 inhaler 05/09/18 Nicotine Patch [Nicoderm Patch -] 21 mg TD DAILY 10 Days #10 patch 05/09/18 Pantoprazole Sodium [Protonix -] 40 mg PO DAILY #10 tablet.ec 05/09/18 levoFLOXacin [Levaquin] 750 mg PO DAILY 4 Days #4 tab 05/09/18 predniSONE [Deltasone -] 40 mg PO DAILY 4 Days #8 tablet 05/09/18 Problem List - Problems (1) Acute bronchitis Code(s): J20.9 - ACUTE BRONCHITIS, UNSPECIFIED (2) Asthmatic bronchitis Code(s): J45.909 - UNSPECIFIED ASTHMA, UNCOMPLICATED This patient is new to me today: No Emergency Visit: Yes ED Registration Date: 05/08/18 Care time: The patient presented to the Emergency Department on the above date and was hospitalized for further evaluation of their emergent condition. Critical Care patient: No - Discharge Referral Referred to [facility] Med [facility].: No
[2018-05-09 12:33] LABS: ALBUMIN 3.6 g/dl (3.4-5.0); ALK PHOS 72 U/L (45-117); ANION GAP 8 MMOL/L (8-16); BILIRUBIN,TOTAL 0.4 mg/dL (0.2-1); BLOOD UREA NITROGEN 15 mg/dL (7-18); CALCIUM 8.6 mg/dL (8.5-10.1); CHLORIDE 110 mmol/L (98-107); CO2 23 mmol/L (21-32); CREATININE 0.7 mg/dL (0.55-1.3); GLUCOSE,RANDOM 171 mg/dL (74-106); PHOSPHOROUS 2.1 mg/dL (2.5-4.9); POTASSIUM 3.9 mmol/L (3.5-5.1); SGOT/AST 16 U/L (15-37); SGPT/ALT 17 U/L (13-61); SODIUM 142 mmol/L (136-145)
[2018-05-09 13:25] VITALS: BP 130/59; PULSE 73; TEMP 97.8
[2018-05-09 13:59] LABS: HEMATOCRIT 39.5 % (32.4-45.2); HEMOGLOBIN 13.1 GM/dL (10.7-15.3); MCH 31.7 pg (25.7-33.7); MCHC 33.2 g/dl (32.0-36.0); MEAN CELL VOLUME 95.4 fl (80-96); MEAN PLT VOLUME 9.4 fl (7.5-11.1); PLATELET COUNT 194 K/MM3 (134-434); RBC 4.14 M/mm3 (3.60-5.2); RDW 13.2 % (11.6-15.6); WHITE BLOOD COUNT 9.6 K/mm3 (4.0-10.0)
--- NOTE | 2018-05-09 16:36 | EKG ---
Test Reason : Blood Pressure : / mmHG Vent. Rate : 074 BPM Atrial Rate : 074 BPM P-R Int : 160 ms QRS Dur : 074 ms QT Int : 402 ms P-R-T Axes : 059 002 011 degrees QTc Int : 446 ms NORMAL SINUS RHYTHM NONSPECIFIC ST ABNORMALITY BORDERLINE ECG Confirmed by MD ANNITA, HEMA ([id number]) on 05/09/2018 4:36:35 PM Referred By: Confirmed By:HEMA ARIZA MD
== END 2018-05-09 13:34 | disposition home or self-care (01) ==
LOC: JER 13:41 → JERBED 16:31 → J5S 22:22
PROC: 3E03329 Introduction of Other Anti-infective into Peripheral Vein, Percutaneous Approach (ICD-10-PCS; principal; 2018-05-08)
PROC: 3E0333Z Introduction of Anti-inflammatory into Peripheral Vein, Percutaneous Approach (ICD-10-PCS; 2018-05-08)
PROC: 3E0F7GC Introduction of Other Therapeutic Substance into Respiratory Tract, Via Natural or Artificial Opening (ICD-10-PCS; 2018-05-08)
DX: J20.9 Acute bronchitis, unspecified (principal); R06.02 Shortness of breath; R19.7 Diarrhea, unspecified; I10 Essential (primary) hypertension; E78.5 Hyperlipidemia, unspecified; F41.9 Anxiety disorder, unspecified; F17.210 Nicotine dependence, cigarettes, uncomplicated; Z86.79 Personal history of other diseases of the circulatory system
CPT/HCPCS: 36415; 71045-TC-FY; 80053; 83735; 84100; 85025; 85027; 87804; 93005; 93010; 94640; 99285-25; G0378

== ENCOUNTER 2018-12-01 05:28 | Inpatient (IN) | payer BC, OTHER ==
[2018-12-01 05:50] VITALS: BMI 30.9
--- NOTE | 2018-12-01 05:58 | PDOC ---
History of Present Illness - General Chief Complaint: Shortness of Breath Stated Complaint: DIFFICULTY BREATHING Time Seen by Provider: 12/01/18 05:58 - History of Present Illness Initial Comments: 63 year old female with PMH of HTN, HLD, Anxiety, Cerebral Aneurysm (s/p Coil ), smoking, and asthma presenting with shortness of breath for the past day along with her GERD symptoms. States that she has had a bad taste in her mouth and some burning in her chest and upper stomach for the past few days consistent with her GERD symptoms but worsened recently despite her home meds. She actually has an endoscopy set up for early next week. She has taken her inhaler with minor relief of her symptoms and states that her cough and SOB is worse when laying flat. Denies fevers, chills, nausea, vomiting, or other symptoms. 12/01/18 05:59 Past History - Past Medical History Allergies/Adverse Reactions: Allergies Allergy/AdvReac Type Severity Reaction Status Date / Time No Known Allergies Allergy Verified 12/01/18 05:43 Home Medications: Ambulatory Orders Alprazolam [Xanax] 0.25 mg PO PRN PRN 05/08/18 Amlodipine Besylate [Norvasc -] 5 mg PO DAILY 05/08/18 Carvedilol 12.5 mg PO BID 05/08/18 Sertraline HCl 75 mg PO DAILY 05/08/18 Simvastatin 20 mg PO HS 05/08/18 Albuterol Sulfate Inhaler - [Ventolin HFA Inhaler -] 1 - 2 inh PO Q4H PRN #1 inhaler 05/09/18 levoFLOXacin [Levaquin] 750 mg PO DAILY 4 Days #4 tab 05/09/18 Clotrimazole [Mycelex Antonio's -] 10 mg PO 5XD 12/01/18 Famotidine [Acid Controller] 20 mg PO BID 12/01/18 Fluticasone Prop 0.05% Nasal [Flonase -] 1 - 2 spray NS DAILY 12/01/18 Ondansetron HCl [Zofran] 4 mg PO PRN PRN 12/01/18 COPD: No HTN: Yes Hypercholesterolemia: Yes Psychiatric Problems: Yes (anxiety) - Immunization History Immunization Up to Date: Yes - Suicide/Smoking/Psychosocial Hx Smoking History: Never smoked Have you smoked in the past 12 months: No Number of Cigarettes Smoked Daily: 7 Information on smoking cessation initiated: No Hx Alcohol Use: No Drug/Substance Use Hx: No Substance Use Type: None Review of Systems - Review of Systems Constitutional: No: Chills, Diaphoresis, Fever, Loss of Appetite HEENTM: No: Blurred Vision, Tearing Respiratory: Yes: Cough, Shortness of Breath. No: Orthopnea, Productive cough Cardiac (ROS): No: Chest Pain, Edema, Irregular Heart Rate ABD/GI: No: Nausea, Poor Appetite, Vomiting : No: Burning, Dysuria, Discharge Integumentary: No: Bruising, Change in Color Neurological: No: Headache, Numbness, Paresthesia Psychiatric: No: Anxiety, Depression Hematologic/Lymphatic: No: Anemia, Blood Clots, Easy Bleeding *Physical Exam - Vital Signs Last Vital Signs Temp Pulse Resp BP Pulse Ox 98.4 F 74 22 H 100/67 96 12/01/18 05:30 12/01/18 05:30 12/01/18 05:30 12/01/18 05:30 12/01/18 05:30 - Physical Exam General Appearance: Yes: Nourished, Appropriately Dressed. No: Apparent Distress HEENT: positive: EOMI, DENAE, Normal ENT Inspection, Normal Voice Neck: positive: Trachea midline, Normal Thyroid, Supple. negative: Tender, Rigid Respiratory/Chest: negative: Chest Tender, Lungs Clear, Normal Breath Sounds ( wheezing bilaterally), Respiratory Distress Cardiovascular: positive: Regular Rhythm, Regular Rate Gastrointestinal/Abdominal: positive: Normal Bowel Sounds, Tender (epigastric tenderness), Flat, Soft Lymphatic: negative: Adenopathy, Tenderness Musculoskeletal: positive: Normal Inspection. negative: Decreased Range of Motion Extremity: positive: Normal Capillary Refill, Normal Inspection, Normal Range of Motion. negative: Tender Integumentary: positive: Normal Color, Dry, Warm Neurologic: positive: Fully Oriented, Alert, Normal Mood/Affect, Normal Response , Motor Strength 5/5 ED Treatment Course - LABORATORY CBC & Chemistry Diagram: 12/01/18 06:45 12/01/18 06:45 Medical Decision Making - Medical Decision Making 63 year old female with PMH of smoking and gerd presenting with symptoms she believes are consistent with her GERD and some shortness of breath. Patient given duonebs, carafate, and ekg/ labs sent. Patient also given steroids 125 MG IV and signed out to Dr. Barreto pending lab follow up. 12/01/18 06:44 *DC/Admit/Observation/Transfer Diagnosis at time of Disposition: Acute electrocardiogram changes, Shortness of breath Chest pain Qualifiers: Chest pain type: unspecified Qualified Code(s): R07.9 - Chest pain, unspecified - Discharge Dispostion Condition at time of disposition: Fair - Referrals - Patient Instructions - Post Discharge Activity
[2018-12-01] MEDS ORDERED: SUCRALFATE 1 GM/10 ML UNIT DOSE CUPS PO ONE (06:18)
[2018-12-01] MEDS ORDERED: ALBUTEROL SO4 2.5/IPRATROPIUM 0.5 INH SOL 3 ML VIAL.NEB. NEB ONE (06:31)
[2018-12-01] MEDS: ALBUTEROL SO4 2.5/IPRATROPIUM 0.5 INH SOL 3 ML VIAL.NEB. NEB SCH ×3 (06:56→07:17)
--- NOTE | 2018-12-01 06:58 | PDOC ---
Attending Attestation - Resident Resident Name: Samantha Ryan - ED Attending Attestation I have performed the following: I have examined & evaluated the patient, The case was reviewed & discussed with the resident, I agree w/resident's findings & plan - HPI HPI: 12/01/18 20:32 63-year-old female with history of asthma and possibly undiagnosed COPD now with increasing shortness of breath and wheezing. - Physicial Exam PE: 12/01/18 20:38 agree with resident exam - Medical Decision Making 12/01/18 20:38 63-year-old female with shortness of breath EKG shows some nonspecific T-wave flattening Case signed out to oncoming physician pending chest x-ray and labs Solu-Medrol and DuoNeb's administered
[2018-12-01] MEDS ORDERED: methylPREDNISolone NA SUCC 125 MG/2 ML VIAL IVPB ONE (07:00)
[2018-12-01] MEDS ORDERED: methylPREDNISolone NA SUCC 125 MG/2 ML VIAL ONE (07:08)
[2018-12-01 07:09] LABS: BASO % 0.8 % (0-2.0); HEMATOCRIT 34.9 % (32.4-45.2); HEMOGLOBIN 12.2 GM/dL (10.7-15.3); LYMPH % 29.5 % (8-40); MCH 32.2 pg (25.7-33.7); MCHC 34.9 g/dl (32.0-36.0); MEAN CELL VOLUME 92.4 fl (80-96); MEAN PLT VOLUME 8.7 fl (7.5-11.1); MONO % 6.1 % (3.8-10.2); NEUT % 63.6 % (42.8-82.8); PLATELET COUNT 214 K/MM3 (134-434); RBC 3.78 M/mm3 (3.60-5.2); RDW 12.9 % (11.6-15.6); WHITE BLOOD COUNT 6.1 K/mm3 (4.0-10.0)
[2018-12-01 07:35] LABS: ALBUMIN 3.6 g/dl (3.4-5.0); BILIRUBIN,TOTAL 0.5 mg/dL (0.2-1); CALCIUM 8.4 mg/dL (8.5-10.1); CREATININE 0.7 mg/dL (0.55-1.3); MAGNESIUM 1.9 mg/dL (1.8-2.4); POTASSIUM 3.4 mmol/L (3.5-5.1); TOT PROT 6.6 g/dl (6.4-8.2)
[2018-12-01 07:43] LABS: INR 1.21 (0.83-1.09); PROTHROMBIN TIME (PATIENT) 14.3 SEC (9.7-13.0)
[2018-12-01 07:49] LABS: N-TERMINAL BNP 87.3 pg/ml (5-125)
--- NOTE | 2018-12-01 08:08 | EKG ---
Test Reason : Blood Pressure : / mmHG Vent. Rate : 063 BPM Atrial Rate : 063 BPM P-R Int : 168 ms QRS Dur : 076 ms QT Int : 448 ms P-R-T Axes : 058 000 -05 degrees QTc Int : 458 ms NORMAL SINUS RHYTHM NONSPECIFIC ST AND T WAVE ABNORMALITY ABNORMAL ECG WHEN COMPARED WITH ECG OF 08-MAY-2018 14:04, NO SIGNIFICANT CHANGE WAS FOUND Confirmed by FRANKIE CRUM, RADHA ([id number]) on 12/01/2018 8:07:46 AM Referred By: Confirmed By:RADHA DAVID MD
--- NOTE | 2018-12-01 09:22 | PDOC ---
*Physical Exam - Vital Signs Last Vital Signs Temp Pulse Resp BP Pulse Ox 98.4 F 74 22 H 100/67 96 12/01/18 05:30 12/01/18 05:30 12/01/18 05:30 12/01/18 05:30 12/01/18 05:30 - Physical Exam Comments: 12/01/18 09:20 Patient endorsed to me by Dr. parkinson. Patient is a 63-year-old female with history of COPD, GERD, steroid-induced thrush, current smoker who presented with substernal chest burning and globus sensation as well as shortness of breath associated with wheezing. Patient had been treated with continuous nebulizer therapy and IV steroids as well as Carafate for symptomatic relieve of suspected GERD. EKG showed no evidence of acute ischemia, flattening T waves noted in the inferior leads. On my reassessment, patient is resting comfortably and is currently symptom-free there is no wheezing rhonchi or rails appreciated. Patient's reflux like symptoms have resolved. Patient states that her substernal chest discomfort and a globus sensation were consistent with previous episodes of reflux exacerbation. Will obtain repeat EKG and repeat cardiac enzymes. Will continue to observe. 12/01/18 09:48 Patient reassessed. Repeat EKG shows T-wave inversions and 3, aVF, V3 and V4 and flattening of the T waves and leads V5 and V6 when compared to an EKG from 6 :15 AM on the day of admission. Given the dynamic EKG changes, patient will be admitted to telemetry for ACS cardiology evaluation. We'll administer IV Pepcid. Will hold off on administering aspirin given history of severe GERD and reflux pending repeat cardiac enzymes. ED Treatment Course - LABORATORY CBC & Chemistry Diagram: 12/01/18 06:45 12/01/18 06:45 - ADDITIONAL ORDERS Additional order review: Laboratory Results 12/01/18 12/01/18 12/01/18 06:45 06:45 06:45 PT with INR 14.30 H INR 1.21 H Sodium 145 Potassium 3.4 L Chloride 112 H Carbon Dioxide 26 Anion Gap 7 L BUN 14.0 Creatinine 0.7 Est GFR (CKD-EPI)AfAm 107.62 Est GFR (CKD-EPI)NonAf 92.86 Random Glucose 126 H Calcium 8.4 L Magnesium 1.9 Total Bilirubin 0.5 AST 16 ALT 16 Alkaline Phosphatase 66 Troponin I < 0.02 B-Natriuretic Peptide 87.3 Total Protein 6.6 Albumin 3.6 12/01/18 06:45 RBC 3.78 MCV 92.4 MCHC 34.9 RDW 12.9 MPV 8.7 Neutrophils % 63.6 Lymphocytes % 29.5 Monocytes % 6.1 Eosinophils % 0.0 Basophils % 0.8 - Medications Given in the ED: ED Medications Discontinued Medications Generic Name Dose Route Start Last Admin Trade Name Matheus PRN Reason Stop Dose Admin Albuterol/Ipratropium 1 amp 12/01/18 06:30 12/01/18 07:17 Duoneb - NEB 12/01/18 07:16 1 amp Q15M ORTIZ Administration Methylprednisolone Sodium Succinate 125 mg 12/01/18 07:00 12/01/18 07:17 Solu-Medrol - IVPB 12/01/18 07:01 125 mg ONCE ONE Administration Sucralfate 1 gm 12/01/18 06:18 12/01/18 07:17 Carafate Oral Suspension - PO 12/01/18 06:19 1 gm NOW ONE Administration *DC/Admit/Observation/Transfer Diagnosis at time of Disposition: Acute electrocardiogram changes, Shortness of breath Chest pain Qualifiers: Chest pain type: unspecified Qualified Code(s): R07.9 - Chest pain, unspecified - Discharge Dispostion Condition at time of disposition: Fair Decision to Admit order: Yes - Referrals Referrals: Abdirashid Rubin [Primary Care Provider] - - Patient Instructions - Post Discharge Activity
[2018-12-01] MEDS ORDERED: FAMOTIDINE 20 MG/50 ML IVPB 20 MG/50 ML MG IVPB ONE ×2 (09:47→11:37)
--- NOTE | 2018-12-01 11:59 | CON.CARD ---
Consult Consult Specialty:: Cardiology Referred by:: Jackeline Hadley MD Reason for Consultation:: Atypical chest pain - History of Present Illness Chief Complaint: Dyspnea and chest burning History of Present Illness: PCP: Dr. Rubin HISTORY OF PRESENT ILLNESS: Patient is a 63 year old female with history of hypertension, hyperlipidemia, anxiety, cerebral aneurysm (s/p endovascular coil 08/2017), GERD presents with complaint of shortness of breath, wheeze amenable to bronchodilators and non- exertional chest burning worse supine than sitting up and improved with belching and Carafate, she is planned for EGD by Dr. Rodrigues next week, denies angina, near or true syncope, palpitations, orthopnea, PND, LE edema or change in exercise capacity. ECG changes noted and admitted r/o [place]. Last echo and stress 2017 reportedly unremarkable. - History Source History Provided By: Patient Limitations to Obtaining History: No Limitations - Alcohol/Substance Use Hx Alcohol Use: No - Smoking History Smoking history: Never smoked Have you smoked in the past 12 months: No Aproximately how many cigarettes per day: 7 Home Medications - Allergies Allergies/Adverse Reactions: Allergies Allergy/AdvReac Type Severity Reaction Status Date / Time No Known Allergies Allergy Verified 12/01/18 05:43 - Home Medications Home Medications: Ambulatory Orders Alprazolam [Xanax] 0.25 mg PO PRN PRN 05/08/18 Amlodipine Besylate [Norvasc -] 5 mg PO DAILY 05/08/18 Carvedilol 12.5 mg PO BID 05/08/18 Sertraline HCl 75 mg PO DAILY 05/08/18 Simvastatin 20 mg PO HS 05/08/18 Albuterol Sulfate Inhaler - [Ventolin HFA Inhaler -] 1 - 2 inh PO Q4H PRN #1 inhaler 05/09/18 levoFLOXacin [Levaquin] 750 mg PO DAILY 4 Days #4 tab 05/09/18 Clotrimazole [Mycelex Antonio's -] 10 mg PO 5XD 12/01/18 Famotidine [Acid Controller] 20 mg PO BID 12/01/18 Fluticasone Prop 0.05% Nasal [Flonase -] 1 - 2 spray NS DAILY 12/01/18 Ondansetron HCl [Zofran] 4 mg PO PRN PRN 12/01/18 Review of Systems - Review of Systems Cardiovascular: reports: Chest Pain Respiratory: reports: SOB, Wheezing Vital Signs: Vital Signs Temperature 98.4 F 12/01/18 05:30 Pulse Rate 74 12/01/18 05:30 Respiratory Rate 22 H 12/01/18 05:30 Blood Pressure 100/67 12/01/18 05:30 O2 Sat by Pulse Oximetry (%) 96 12/01/18 05:30 Constitutional: Yes: No Distress, Calm Neck: Yes: Supple Respiratory: Yes: Regular, Diminished, Wheezes Cardiovascular: Yes: Regular Rate and Rhythm JVD: No Carotid Bruit: No Heart Sounds: Yes: S1, S2 Edema: No - Other Data Labs, Other Data: CBC, BMP 12/01/18 06:45 12/01/18 06:45 INR, PTT INR 1.21 (0.83-1.09) H 12/01/18 06:45 Troponin, BNP 12/01/18 12/01/18 06:45 06:45 Troponin I < 0.02 B-Natriuretic Peptide 87.3 Troponin, BNP 12/01/18 12/01/18 06:45 06:45 Troponin I < 0.02 B-Natriuretic Peptide 87.3 Imaging - Results Chest X-ray: Report Reviewed (NAD) EKG: Report Reviewed (NSR @ 58 nonspec T changes) Problem List - Problems (1) GERD (gastroesophageal reflux disease) Code(s): K21.9 - GASTRO-ESOPHAGEAL REFLUX DISEASE WITHOUT ESOPHAGITIS Qualifiers: Esophagitis presence: esophagitis presence not specified Qualified Code(s) : K21.9 - Gastro-esophageal reflux disease without esophagitis (2) Hypertension Code(s): I10 - ESSENTIAL (PRIMARY) HYPERTENSION Qualifiers: Hypertension type: essential hypertension Qualified Code(s): I10 - Essential (primary) hypertension (3) Hyperlipidemia Code(s): E78.5 - HYPERLIPIDEMIA, UNSPECIFIED Qualifiers: Hyperlipidemia type: pure hypercholesterolemia Qualified Code(s): E78.00 - Pure hypercholesterolemia, unspecified; E78.0 - Pure hypercholesterolemia (4) Chest pain Code(s): R07.9 - CHEST PAIN, UNSPECIFIED Qualifiers: Chest pain type: other chest pain Qualified Code(s): R07.89 - Other chest pain; R07.8 - Other chest pain (5) Asthmatic bronchitis Code(s): J45.909 - UNSPECIFIED ASTHMA, UNCOMPLICATED Qualifiers: Asthma severity: unspecified severity Assessment/Plan 1. Atypical chest pain c/w known GERD 2. COPD, current smoker 3. HTN 4. Hyperlipidemia 5. Cerebral Aneurysm (s/p Coil 08/19) 6. Anxiety P:1. Ruling out for [place] 2. BD, Pepcid, smoking cessation advice 3. Continue Norvasc 5 qd, carvedilol 12.5 bid and Zocor 20 qhs 4. Anticipate d/c later today with f/u with her PMD and Dr. Rodrigues as outpatient 5. Thank you for consultative opportunity
--- NOTE | 2018-12-01 13:21 | HP ---
Admitting History and Physical - Primary Care Physician PCP: Jackeline Hadley - Admission History of Present Illness: 63 year old female with PMH of HTN, HLD, Anxiety, Cerebral Aneurysm (s/p Coil ), smoking, and asthma presenting with shortness of breath for the past day along with her GERD symptoms. States that she has had a bad taste in her mouth and some burning in her chest and upper stomach for the past few days consistent with her GERD symptoms but worsened recently despite her home meds. She actually has an endoscopy set up for early next week. She has taken her inhaler with minor relief of her symptoms and states that her cough and SOB is worse when laying flat. Denies fevers, chills, nausea, vomiting, or other symptoms. - Past Medical History [employer]: Yes: Other (aneurysm) Cardiovascular: Yes: HTN, Hyperlipdemia Pulmonary: Yes: Asthma - Smoking History Smoking history: Never smoked Have you smoked in the past 12 months: No Aproximately how many cigarettes per day: 7 - Alcohol/Substance Use Hx Alcohol Use: No Home Medications - Allergies Allergies/Adverse Reactions: Allergies Allergy/AdvReac Type Severity Reaction Status Date / Time No Known Allergies Allergy Verified 12/01/18 05:43 - Home Medications Home Medications: Ambulatory Orders Alprazolam [Xanax] 0.25 mg PO PRN PRN 05/08/18 Amlodipine Besylate [Norvasc -] 5 mg PO DAILY 05/08/18 Carvedilol 12.5 mg PO BID 05/08/18 Sertraline HCl 75 mg PO DAILY 05/08/18 Simvastatin 20 mg PO HS 05/08/18 Albuterol Sulfate Inhaler - [Ventolin HFA Inhaler -] 1 - 2 inh PO Q4H PRN #1 inhaler 05/09/18 levoFLOXacin [Levaquin] 750 mg PO DAILY 4 Days #4 tab 05/09/18 Clotrimazole [Mycelex Antonio's -] 10 mg PO 5XD 12/01/18 Famotidine [Acid Controller] 20 mg PO BID 12/01/18 Fluticasone Prop 0.05% Nasal [Flonase -] 1 - 2 spray NS DAILY 12/01/18 Ondansetron HCl [Zofran] 4 mg PO PRN PRN 12/01/18 Physical Examination Vital Signs: Vital Signs Temperature 98.4 F 12/01/18 05:30 Pulse Rate 74 12/01/18 05:30 Respiratory Rate 22 H 12/01/18 05:30 Blood Pressure 100/67 12/01/18 05:30 O2 Sat by Pulse Oximetry (%) 96 12/01/18 05:30 Constitutional: Yes: No Distress HENT: Yes: Atraumatic Neck: Yes: Supple Cardiovascular: Yes: Regular Rate and Rhythm Respiratory: Yes: CTA Bilaterally Gastrointestinal: Yes: Normal Bowel Sounds Extremities: Yes: WNL Edema: No Neurological: Yes: Alert, Oriented Labs: CBC, BMP 12/01/18 06:45 12/01/18 06:45 Imaging - Results X-ray: Report Reviewed Problem List - Problems (1) Acute electrocardiogram changes Assessment/Plan: will do tele monitoring repeat ekg in am fu cardiac enzymes Code(s): R94.31 - ABNORMAL ELECTROCARDIOGRAM [ECG] [EKG] (2) Chest pain Assessment/Plan: fu cardiac enzymes Code(s): R07.9 - CHEST PAIN, UNSPECIFIED Qualifiers: Chest pain type: other chest pain Qualified Code(s): R07.89 - Other chest pain; R07.8 - Other chest pain (3) GERD (gastroesophageal reflux disease) Assessment/Plan: on protonix Code(s): K21.9 - GASTRO-ESOPHAGEAL REFLUX DISEASE WITHOUT ESOPHAGITIS Qualifiers: Esophagitis presence: esophagitis presence not specified Qualified Code(s) : K21.9 - Gastro-esophageal reflux disease without esophagitis (4) Hyperlipidemia Code(s): E78.5 - HYPERLIPIDEMIA, UNSPECIFIED Qualifiers: Hyperlipidemia type: pure hypercholesterolemia Qualified Code(s): E78.00 - Pure hypercholesterolemia, unspecified; E78.0 - Pure hypercholesterolemia (5) Hypertension Code(s): I10 - ESSENTIAL (PRIMARY) HYPERTENSION Qualifiers: Hypertension type: essential hypertension Qualified Code(s): I10 - Essential (primary) hypertension (6) Shortness of breath Code(s): R06.02 - SHORTNESS OF BREATH Assessment/Plan Laboratory Tests 12/01/18 12/01/18 12/01/18 06:45 06:45 06:45 WBC 6.1 RBC 3.78 Hgb 12.2 Hct 34.9 MCV 92.4 MCH 32.2 MCHC 34.9 RDW 12.9 Plt Count 214 MPV 8.7 Absolute Neuts (auto) 3.9 Neutrophils % 63.6 Lymphocytes % 29.5 Monocytes % 6.1 Eosinophils % 0.0 Basophils % 0.8 Nucleated RBC % 0 PT with INR INR Sodium 145 Potassium 3.4 L Chloride 112 H Carbon Dioxide 26 Anion Gap 7 L BUN 14.0 Creatinine 0.7 Est GFR (CKD-EPI)AfAm 107.62 Est GFR (CKD-EPI)NonAf 92.86 Random Glucose 126 H Calcium 8.4 L Magnesium 1.9 Total Bilirubin 0.5 AST 16 ALT 16 Alkaline Phosphatase 66 Troponin I < 0.02 B-Natriuretic Peptide 87.3 Total Protein 6.6 Albumin 3.6 12/01/18 06:45 WBC RBC Hgb Hct MCV MCH MCHC RDW Plt Count MPV Absolute Neuts (auto) Neutrophils % Lymphocytes % Monocytes % Eosinophils % Basophils % Nucleated RBC % PT with INR 14.30 H INR 1.21 H Sodium Potassium Chloride Carbon Dioxide Anion Gap BUN Creatinine Est GFR (CKD-EPI)AfAm Est GFR (CKD-EPI)NonAf Random Glucose Calcium Magnesium Total Bilirubin AST ALT Alkaline Phosphatase Troponin I B-Natriuretic Peptide Total Protein Albumin
--- NOTE | 2018-12-01 14:25 | EKG ---
Test Reason : Blood Pressure : / mmHG Vent. Rate : 058 BPM Atrial Rate : 058 BPM P-R Int : 164 ms QRS Dur : 088 ms QT Int : 472 ms P-R-T Axes : 049 008 -03 degrees QTc Int : 463 ms SINUS BRADYCARDIA WITH SINUS ARRHYTHMIA NONSPECIFIC T WAVE ABNORMALITY ABNORMAL ECG WHEN COMPARED WITH ECG OF 01-DEC-2018 06:15, NO SIGNIFICANT CHANGE WAS FOUND Confirmed by FRANKIE CRUM, RADHA ([id number]) on 12/01/2018 2:24:46 PM Referred By: Confirmed By:RADHA DAVID MD
[2018-12-01] MEDS ORDERED: PT OWN MED DRAWER 7, Y5N ONE (14:59)
[2018-12-01] MEDS: CLOTRIMAZOLE 10 MG TROCHE (FP) PO SCH ×3 (15:00→22:04)
--- NOTE | 2018-12-01 15:14 | EKG ---
Test Reason : Blood Pressure : / mmHG Vent. Rate : 058 BPM Atrial Rate : 058 BPM P-R Int : 154 ms QRS Dur : 084 ms QT Int : 450 ms P-R-T Axes : 058 -05 -20 degrees QTc Int : 441 ms SINUS BRADYCARDIA WITH SINUS ARRHYTHMIA MINIMAL VOLTAGE CRITERIA FOR LVH, MAY BE NORMAL VARIANT NONSPECIFIC T WAVE ABNORMALITY ABNORMAL ECG WHEN COMPARED WITH ECG OF 01-DEC-2018 09:26, NO SIGNIFICANT CHANGE WAS FOUND Confirmed by RADHA DAVID MD ([id number]) on 12/01/2018 3:13:58 PM Referred By: ANISA MALIK Confirmed By:RADHA DAVID MD
[2018-12-01] MEDS ORDERED: ALPRAZolam 0.25 MG TABLET PO PRN (20:20)
[2018-12-01] MEDS ORDERED: ATORVASTATIN CA 10 MG TABLET (FP) PO SCH (22:00)
[2018-12-01] MEDS: CARVEDILOL 12.5 MG TABLET (FP) PO SCH (22:04)
[2018-12-01] MEDS: RANITIDINE HCL 150 MG TABLET (FP) PO SCH (22:04)
[2018-12-01] MEDS: HEPARIN NA (PORCINE) 5,000 UNITS/ML 1ML VIAL SQ SCH (22:04)
[2018-12-02] MEDS: NYSTATIN 500,000 UNITS/5 ML SUSPENSION PO SCH ×2 (00:14→05:59)
[2018-12-02] MEDS: CLOTRIMAZOLE 10 MG TROCHE (FP) PO SCH ×2 (05:59→10:07)
[2018-12-02 06:19] VITALS: BP 132/71; PULSE 56; TEMP 98.4
--- NOTE | 2018-12-02 09:36 | PN ---
Progress Note, Physician History of Present Illness: No further dyspnea or chest burning. - Current Medication List Current Medications: Active Medications Alprazolam (Xanax -) 0.25 mg PO Q6H PRN PRN Reason: ANXIETY Last Admin: 12/01/18 22:04 Dose: 0.25 mg Amlodipine Besylate (Norvasc -) 5 mg PO DAILY [facility] Atorvastatin Calcium (Lipitor -) 10 mg PO HS [facility] Last Admin: 12/01/18 22:04 Dose: 10 mg Carvedilol (Coreg -) 12.5 mg PO BID [facility] Last Admin: 12/01/18 22:04 Dose: 12.5 mg Clotrimazole (Mycelex Antonio's -) 10 mg PO 5XD [facility] Last Admin: 12/02/18 05:59 Dose: 10 mg Heparin Sodium (Porcine) (Heparin -) 5,000 unit SQ BID [facility] Last Admin: 12/01/18 22:04 Dose: 5,000 unit Nystatin (Nystatin Oral Suspension -) 500,000 units PO Q6HPO [facility] Last Admin: 12/02/18 05:59 Dose: 500,000 units Ranitidine HCl (Zantac -) 150 mg PO BID [facility] Last Admin: 12/01/18 22:04 Dose: 150 mg - Objective Vital Signs: Vital Signs Temperature 98.4 F 12/02/18 06:17 Pulse Rate 56 L 12/02/18 06:17 Respiratory Rate 20 12/02/18 06:17 Blood Pressure 132/71 12/02/18 06:17 O2 Sat by Pulse Oximetry (%) 98 12/02/18 06:00 Constitutional: Yes: No Distress, Calm Neck: Yes: Supple Cardiovascular: Yes: Regular Rate and Rhythm Respiratory: Yes: Regular, Diminished Gastrointestinal: Yes: Normal Bowel Sounds, Soft, Abdomen, Obese Edema: No Labs: CBC, BMP 12/01/18 06:45 12/01/18 06:45 INR, PTT INR 1.21 (0.83-1.09) H 12/01/18 06:45 - ....Imaging EKG: Report Reviewed (Tele: NSR) Problem List - Problems (1) GERD (gastroesophageal reflux disease) Code(s): K21.9 - GASTRO-ESOPHAGEAL REFLUX DISEASE WITHOUT ESOPHAGITIS Qualifiers: Esophagitis presence: esophagitis presence not specified Qualified Code(s) : K21.9 - Gastro-esophageal reflux disease without esophagitis (2) Hypertension Code(s): I10 - ESSENTIAL (PRIMARY) HYPERTENSION Qualifiers: Hypertension type: essential hypertension Qualified Code(s): I10 - Essential (primary) hypertension (3) Hyperlipidemia Code(s): E78.5 - HYPERLIPIDEMIA, UNSPECIFIED Qualifiers: Hyperlipidemia type: pure hypercholesterolemia Qualified Code(s): E78.00 - Pure hypercholesterolemia, unspecified; E78.0 - Pure hypercholesterolemia (4) Chest pain Code(s): R07.9 - CHEST PAIN, UNSPECIFIED Qualifiers: Chest pain type: other chest pain Qualified Code(s): R07.89 - Other chest pain; R07.8 - Other chest pain (5) Asthmatic bronchitis Code(s): J45.909 - UNSPECIFIED ASTHMA, UNCOMPLICATED Qualifiers: Asthma severity: unspecified severity Assessment/Plan 1. Atypical chest pain c/w known GERD 2. COPD, current smoker 3. HTN 4. Hyperlipidemia 5. Cerebral Aneurysm (s/p Coil 08/19) 6. Anxiety P:1. Ruled out for [place] 2. BD, Pepcid, smoking cessation advice 3. Continue Norvasc 5 qd, carvedilol 12.5 bid and Zocor 20 qhs 4. Anticipate d/c later today with f/u with her PMD and Dr. Rodrgiues as outpatient
[2018-12-02] MEDS ORDERED: amLODIPine BESYLATE 5 MG TABLET (FP) PO SCH (10:00)
[2018-12-02] MEDS: HEPARIN NA (PORCINE) 5,000 UNITS/ML 1ML VIAL SQ SCH (10:07)
[2018-12-02] MEDS: RANITIDINE HCL 150 MG TABLET (FP) PO SCH (10:07)
[2018-12-02] MEDS: CARVEDILOL 12.5 MG TABLET (FP) PO SCH (10:07)
--- NOTE | 2018-12-02 11:12 | DS ---
Physical Examination Vital Signs: Vital Signs Temperature 98.4 F 12/02/18 06:17 Pulse Rate 56 L 12/02/18 06:17 Respiratory Rate 20 12/02/18 06:17 Blood Pressure 132/71 12/02/18 06:17 O2 Sat by Pulse Oximetry (%) 98 12/02/18 06:00 Constitutional: Yes: No Distress HENT: Yes: Atraumatic Neck: Yes: Supple Cardiovascular: Yes: Regular Rate and Rhythm Respiratory: Yes: CTA Bilaterally Gastrointestinal: Yes: Normal Bowel Sounds Extremities: Yes: WNL Edema: No Neurological: Yes: Alert, Oriented Labs: CBC, BMP 12/01/18 06:45 12/01/18 06:45 Discharge Summary Reason For Visit: ACUTE ELECTROCARDIOGRAPHY CHANGES,CHEST PAIN Current Active Problems Acute electrocardiogram changes (Acute) Chest pain (Acute) GERD (gastroesophageal reflux disease) (Acute) Hyperlipidemia (Acute) Hypertension (Acute) Shortness of breath (Acute) Condition: Fair - Instructions Disposition: HOME - Home Medications Comprehensive Discharge Medication List: Ambulatory Orders Alprazolam [Xanax] 0.25 mg PO PRN PRN 05/08/18 Amlodipine Besylate [Norvasc -] 5 mg PO DAILY 05/08/18 Carvedilol 12.5 mg PO BID 05/08/18 Sertraline HCl 75 mg PO DAILY 05/08/18 Simvastatin 20 mg PO HS 05/08/18 Albuterol Sulfate Inhaler - [Ventolin HFA Inhaler -] 1 - 2 inh PO Q4H PRN #1 inhaler 05/09/18 levoFLOXacin [Levaquin] 750 mg PO DAILY 4 Days #4 tab 05/09/18 Clotrimazole [Mycelex -] 10 mg PO 5XD 12/01/18 Famotidine [Acid Controller] 20 mg PO BID 12/01/18 Fluticasone Prop 0.05% Nasal [Flonase -] 1 - 2 spray NS DAILY 12/01/18 Ondansetron HCl [Zofran] 4 mg PO PRN PRN 12/01/18 dc home cleared by cardiology
--- NOTE | 2018-12-02 11:50 | CON.ID ---
Consult Consult Specialty:: infectious diseases Referred by:: Reason for Consultation:: dirrhoea,abd pain - History of Present Illness Chief Complaint: abd pain History of Present Illness: 63 year old female with PMH of HTN, HLD, Anxiety, Cerebral Aneurysm (s/p Coil ), smoking, and asthma presenting with shortness of breath for the past day along with her GERD symptoms. States that she has had a bad taste in her mouth and some burning in her chest and upper stomach for the past few days consistent with her GERD symptoms but worsened recently despite her home meds. She actually has an endoscopy set up for early next week. She has taken her inhaler with minor relief of her symptoms and states that her cough and SOB is worse when laying flat. Denies fevers, chills, nausea, vomiting, or other symptoms. 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) Cardio/Vascular: Yes: HTN, Hyperlipdemia Pulmonary: Yes: Asthma - Alcohol/Substance Use Hx Alcohol Use: No - Smoking History Smoking history: Never smoked Have you smoked in the past 12 months: No Aproximately how many cigarettes per day: 7 Home Medications - Allergies Allergies/Adverse Reactions: Allergies Allergy/AdvReac Type Severity Reaction Status Date / Time No Known Allergies Allergy Verified 12/01/18 05:43 - Home Medications Home Medications: Ambulatory Orders Alprazolam [Xanax] 0.25 mg PO PRN PRN 05/08/18 Amlodipine Besylate [Norvasc -] 5 mg PO DAILY 05/08/18 Carvedilol 12.5 mg PO BID 05/08/18 Sertraline HCl 75 mg PO DAILY 05/08/18 Simvastatin 20 mg PO HS 05/08/18 Albuterol Sulfate Inhaler - [Ventolin HFA Inhaler -] 1 - 2 inh PO Q4H PRN #1 inhaler 05/09/18 levoFLOXacin [Levaquin] 750 mg PO DAILY 4 Days #4 tab 05/09/18 Clotrimazole [Mycelex -] 10 mg PO 5XD 12/01/18 Famotidine [Acid Controller] 20 mg PO BID 12/01/18 Fluticasone Prop 0.05% Nasal [Flonase -] 1 - 2 spray NS DAILY 12/01/18 Ondansetron HCl [Zofran] 4 mg PO PRN PRN 12/01/18 Sucralfate Oral Suspension [Carafate Oral Suspension -] 1 gm PO DAILY PRN #100 ml 12/02/18 Review of Systems - Review of Systems Constitutional: reports: No Symptoms Eyes: reports: No Symptoms HENT: reports: No Symptoms Neck: reports: No Symptoms Cardiovascular: reports: No Symptoms Respiratory: reports: No Symptoms Gastrointestinal: reports: Abdominal Pain, Other Genitourinary: reports: No Symptoms Musculoskeletal: reports: No Symptoms Integumentary: reports: No Symptoms Neurological: reports: No Symptoms Endocrine: reports: No Symptoms Hematology/Lymphatic: reports: No Symptoms Psychiatric: reports: No Symptoms Physical Exam Vital Signs: Vital Signs Temperature 98.4 F 12/02/18 06:17 Pulse Rate 56 L 12/02/18 06:17 Respiratory Rate 20 12/02/18 06:17 Blood Pressure 132/71 12/02/18 06:17 O2 Sat by Pulse Oximetry (%) 98 12/02/18 06:00 Constitutional: Yes: Well Nourished, Obese Neck: Yes: Supple, Trachea Midline Cardiovascular: Yes: Regular Rate and Rhythm Respiratory: Yes: Regular, CTA Bilaterally Gastrointestinal: Yes: Normal Bowel Sounds, Soft Musculoskeletal: Yes: WNL Extremities: Yes: WNL Neurological: Yes: Alert, Oriented Psychiatric: Yes: Alert, Oriented Labs: CBC, BMP 12/01/18 06:45 12/01/18 06:45 Imaging - Results Chest X-ray: Report Reviewed, Image Reviewed Assessment/Plan Problem List - Problems (1) GERD (gastroesophageal reflux disease) Code(s): K21.9 - GASTRO-ESOPHAGEAL REFLUX DISEASE WITHOUT ESOPHAGITIS Qualifiers: Esophagitis presence: esophagitis presence not specified Qualified Code(s) : K21.9 - Gastro-esophageal reflux disease without esophagitis (2) Hypertension Code(s): I10 - ESSENTIAL (PRIMARY) HYPERTENSION Qualifiers: Hypertension type: essential hypertension Qualified Code(s): I10 - Essential (primary) hypertension (3) Hyperlipidemia Code(s): E78.5 - HYPERLIPIDEMIA, UNSPECIFIED Qualifiers: Hyperlipidemia type: pure hypercholesterolemia Qualified Code(s): E78.00 - Pure hypercholesterolemia, unspecified; E78.0 - Pure hypercholesterolemia (4) Chest pain Code(s): R07.9 - CHEST PAIN, UNSPECIFIED Qualifiers: Chest pain type: other chest pain Qualified Code(s): R07.89 - Other chest pain; R07.8 - Other chest pain (5) Asthmatic bronchitis Code(s): J45.909 - UNSPECIFIED ASTHMA, UNCOMPLICATED Qualifiers: Asthma severity: unspecified severity Assessment/Plan 1. Atypical chest pain c/w known GERD 2. COPD, current smoker 3. HTN 4. Hyperlipidemia 5. Cerebral Aneurysm (s/p Coil 08/19) 6. Anxiety one of the things to r/o is hpylori patient for scope on thursday can get it done rest as per the team
--- NOTE | 2018-12-02 13:59 | EKG ---
Test Reason : Blood Pressure : / mmHG Vent. Rate : 050 BPM Atrial Rate : 050 BPM P-R Int : 166 ms QRS Dur : 086 ms QT Int : 458 ms P-R-T Axes : 051 -01 -04 degrees QTc Int : 417 ms SINUS BRADYCARDIA MINIMAL VOLTAGE CRITERIA FOR LVH, MAY BE NORMAL VARIANT BORDERLINE ECG WHEN COMPARED WITH ECG OF 01-DEC-2018 14:43, NONSPECIFIC T WAVE ABNORMALITY NO LONGER EVIDENT IN LATERAL LEADS Confirmed by DEON CRUM, ESPINOZA ([id number]) on 12/02/2018 1:59:50 PM Referred By: Confirmed By:ESPINOZA CHAVARRIA MD
== END 2018-12-02 12:56 | disposition home or self-care (01) | DRG 313 ==
LOC: JER 05:28 → JERBED 09:50 → J4W 11:42 → JERBED 11:42 → J4W 12:11
PROVIDERS: ADMIT Internal Medicine; ATTEND Internal Medicine
PROC: 3E0F7GC Introduction of Other Therapeutic Substance into Respiratory Tract, Via Natural or Artificial Opening (ICD-10-PCS; principal; 2018-12-01)
DX: R07.89 Other chest pain (principal); K21.9 Gastro-esophageal reflux disease without esophagitis; R94.31 Abnormal electrocardiogram [ECG] [EKG]; I10 Essential (primary) hypertension; E78.5 Hyperlipidemia, unspecified; F41.9 Anxiety disorder, unspecified; F17.210 Nicotine dependence, cigarettes, uncomplicated; J44.9 Chronic obstructive pulmonary disease, unspecified; E66.9 Obesity, unspecified; Z68.30 Body mass index [BMI] 30.0-30.9, adult
CPT/HCPCS: 36415; 71045-TC-FY; 80053; 82550; 83735; 83880; 84484; 85025; 85610; 93005; 93010; 99285-25; J1644

== ENCOUNTER 2019-02-14 03:48 | Emergency (ER) | payer BC, OTHER ==
[2019-02-14 04:06] VITALS: BP 107/70; PULSE 99; TEMP 98; BMI 28.8
--- NOTE | 2019-02-14 04:21 | PDOC ---
History of Present Illness - General Chief Complaint: Shortness of Breath Stated Complaint: S.O.B. - History of Present Illness Initial Comments: 02/14/19 04:21 64 yo F PMH HTN, HLD, anxiety, cerebral aneurysm (s/p Coil 08/19), smoking, and asthma, p/w SOB. Notably seen here 2 months ago with abdominal pain, had some EKG changes at that time, admitted and then discharged. States that she woke up around 0200 to take cough medication, felt continued SOB despite trying her inhaler. On ROS, complains only of cough for the past 2 weeks. States that this feels like her normal asthma exacerbation, which she most recently had in May 2018; specifically reports that this feels not at all like her symptoms from two months ago. Specifically denies CP, abd pain, N/V, diaphoresis, BORJA, fevers/chills, constipation/diarrhea. Past History - Past Medical History Allergies/Adverse Reactions: Allergies Allergy/AdvReac Type Severity Reaction Status Date / Time No Known Allergies Allergy Verified 12/01/18 05:43 Home Medications: Ambulatory Orders Alprazolam [Xanax] 0.25 mg PO PRN PRN 05/08/18 Amlodipine Besylate [Norvasc -] 5 mg PO DAILY 05/08/18 Carvedilol 12.5 mg PO BID 05/08/18 Sertraline HCl 75 mg PO DAILY 05/08/18 Simvastatin 20 mg PO HS 05/08/18 Albuterol Sulfate Inhaler - [Ventolin HFA Inhaler -] 1 - 2 inh PO Q4H PRN #1 inhaler 05/09/18 levoFLOXacin [Levaquin] 750 mg PO DAILY 4 Days #4 tab 05/09/18 Clotrimazole [Mycelex -] 10 mg PO 5XD 12/01/18 Famotidine [Acid Controller] 20 mg PO BID 12/01/18 Fluticasone Prop 0.05% Nasal [Flonase -] 1 - 2 spray NS DAILY 12/01/18 Ondansetron HCl [Zofran] 4 mg PO PRN PRN 12/01/18 Sucralfate Oral Suspension [Carafate Oral Suspension -] 1 gm PO DAILY PRN #100 ml 12/02/18 Asthma: Yes COPD: No GI Disorders: Yes HTN: Yes Hypercholesterolemia: Yes Liver Disease: (fatty liver) Psychiatric Problems: Yes (anxiety) - Immunization History Immunization Up to Date: Yes - Psycho Social/Smoking Cessation Hx Smoking History: Current every day smoker Have you smoked in the past 12 months: No Number of Cigarettes Smoked Daily: 10 Information on smoking cessation initiated: Yes 'Breaking Loose' booklet given: 12/01/18 Hx Alcohol Use: No Drug/Substance Use Hx: No Substance Use Type: None Review of Systems - Review of Systems Able to Perform ROS?: Yes Constitutional: No: Chills, Diaphoresis, Fever HEENTM: No: Recent change in vision, Throat Pain, Mouth Swelling Respiratory: Yes: Cough, Shortness of Breath Cardiac (ROS): No: Chest Pain, Edema, Irregular Heart Rate, Lightheadedness, Palpitations, Chest Tightness ABD/GI: No: Constipated, Diarrhea, Nausea, Vomiting : No: Burning, Dysuria Musculoskeletal: No: Back Pain, Neck Pain Neurological: No: Headache, Numbness, Tingling, Weakness *Physical Exam - Vital Signs Last Vital Signs Temp Pulse Resp BP Pulse Ox 98.0 F 99 H 24 H 107/70 95 02/14/19 04:03 02/14/19 04:03 02/14/19 04:03 02/14/19 04:03 02/14/19 04:03 - Physical Exam Comments: 02/14/19 04:35 Gen: well-developed, well-nourished, appears to be distressed Neuro: AAOX4, CN II-XII intact, FTN intact, EOMI, PERRLA HEENT: atraumatic, normocephalic Neck: trachea midline, supple CV: regular rate, regular rhythm, no murmurs, rubs, or gallops Pulm: diffuse expiratory wheezing Abd: soft, non-distended, non-tender MSK: full ROM, intact pulses Extr: no edema, no deformities Skin: warm, dry Medical Decision Making - Medical Decision Making 02/14/19 04:36 Concern for asthma exacerbation. - EKG - CXR - Duonebs - reassess 02/14/19 05:01 Patient reassessed, feeling back to baseline, breathing normally. Refuses EKG, states that she was admitted two months ago for what turned out to be nothing and is adamant that this is purely her asthma. This clinically appears to be asthma exacerbation. Will f/u CXR, likely dc home. 02/14/19 05:14 CXR with no acute pathology. 02/14/19 05:32 Patient reassessed, back to baseline. Respirations 16. Will dc. Discharge - Discharge Information Problems reviewed: Yes Clinical Impression/Diagnosis: Asthma exacerbation Condition: Improved Disposition: HOME - Admission No - Follow up/Referral Referrals: Abdirashid Rubin [Primary Care Provider] - - Patient Discharge Instructions Patient Printed Discharge Instructions: DI for Asthma -- Adult Additional Instructions: You were seen with shortness of breath. Your breathing improved with treatment, and your chest X ray did not show any acute issues. Follow up with your primary care doctor within one week. Return to the ED if you develop worsening symptoms. - Post Discharge Activity
[2019-02-14] MEDS ORDERED: ALBUTEROL SO4 2.5/IPRATROPIUM 0.5 INH SOL 3 ML VIAL.NEB. NEB ONE ×2 (04:31→04:38)
--- NOTE | 2019-02-14 04:47 | PDOC ---
Attending Attestation - Resident Resident Name: Aleah Simmons - ED Attending Attestation I have performed the following: I have examined & evaluated the patient, The case was reviewed & discussed with the resident, I agree w/resident's findings & plan, Exceptions are as noted - HPI HPI: 02/14/19 04:43 64 F with h/o HTN, HLD, anxiety, COPD, cerebral aneurysm s/p coiling, presenting to ED with cough and SOB. Pt reports cough that started 2 weeks ago. Denies F/C. States that this feels like her usual asthma/bronchitis. Denies any leg swelling. Denies chest pain. Has been using her albuterol pump with minimal relief. - Physicial Exam PE: 02/14/19 04:47 "GENERAL: Awake, alert, and fully oriented, in no acute distress. HEAD: No signs of trauma EYES: PERRLA, EOMI, sclera anicteric, conjunctiva clear ENT: Auricles normal inspection, hearing grossly normal, nares patent, oropharynx clear without exudates. Moist mucosa NECK: Nontender, no stepoffs, Normal ROM, supple, no lymphadenopathy, JVD, or masses LUNGS: + diffuse expiratory wheezes HEART: Regular rate and rhythm, normal S1 and S2, no murmurs, rubs or gallops ABDOMEN: Soft, nontender, normoactive bowel sounds. No guarding, no rebound. No masses EXTREMITIES: Normal range of motion, no edema. No clubbing or cyanosis. No cords, erythema, or tenderness NEUROLOGICAL: Cranial nerves II through XII intact. 5/5 strength and sensation in all extremities, Normal speech, normal gait, normal cerebellar function SKIN: Warm, Dry, normal turgor, no rashes or lesions noted. - Medical Decision Making 02/14/19 04:47 64 F with likely asthma/COPD flare. Pt without chest pain to suggest ACS. No evidence of volume overload on exam. No PE risk factors. Pt offered labwork and EKG but refusing. - CXR - Nebs - Pt refusing steroids due to adverse reaction in the past 02/14/19 05:42 CXR clear on my read Pt reassessed - reports complete resolution of her symptoms Lung exam clear Repeat RR 16, satting 99% on RA Pt is well appearing, with normal vitals. Clinically stable for DC at this time. I discussed the physical exam findings, ancillary test results and final diagnoses with the patient. I answered all of the patient's questions. The patient was satisfied with the care received and felt comfortable with the discharge plan and treatment plan. The patient agrees to follow up with the primary care physician within 24-72 hours.
== END 2019-02-14 06:00 | disposition home or self-care (01) ==
LOC: JER 03:48
PROC: 3E0F7GC Introduction of Other Therapeutic Substance into Respiratory Tract, Via Natural or Artificial Opening (ICD-10-PCS; principal; 2019-02-14)
DX: J45.901 Unspecified asthma with (acute) exacerbation (principal); J44.9 Chronic obstructive pulmonary disease, unspecified; I10 Essential (primary) hypertension; E78.5 Hyperlipidemia, unspecified; E78.00 Pure hypercholesterolemia, unspecified; F41.9 Anxiety disorder, unspecified; K76.0 Fatty (change of) liver, not elsewhere classified; F17.210 Nicotine dependence, cigarettes, uncomplicated
CPT/HCPCS: 71046-TC-FY; 99281-25

== ENCOUNTER 2019-06-05 12:30 | Emergency (ER) | payer BC, OTHER ==
[2019-06-05 12:34] VITALS: BP 95/74; PULSE 113; TEMP 97.6; BMI 27.1
[2019-06-05] MEDS ORDERED: ALBUTEROL SO4 2.5/IPRATROPIUM 0.5 INH SOL 3 ML VIAL.NEB. NEB ONE ×2 (13:04→13:15)
[2019-06-05] MEDS ORDERED: SODIUM CHLORIDE FOR INHALATION 3 ML VIAL.NEB IH ONE (13:04)
--- NOTE | 2019-06-05 13:11 | PDOC ---
History of Present Illness - General Chief Complaint: Respiratory Stated Complaint: DIFFICULTY BREATHING Time Seen by Provider: 06/05/19 12:57 History Source: Patient Exam Limitations: Clinical Condition - History of Present Illness Initial Comments: 06/05/19 13:18 Patient with past medical history of asthma, GERD, hypertension and hyperlipidemia presented with complaint of over 3 weeks history of persistent cough and intermittent wheezing which she was being followed up by PCP and GI was told cough was likely caused by acid reflux. Patient had chest CT done over a month ago with normal results and reported her multiple checks x-ray with normal results. Patient was placed on Protonix by GI for cough but patient stopped taking medication after a week as she reports was not given clear instruction by GI on how long she is supposed to take medication for. Patient reported has been having persistent wheezing since yesterday with intermittent shortness of breath. Patient also reported nasal congestion, runny nose and cough with clear sputum. Patient reported doing home nebulizer treatment overnight and again this morning with minimal improvement. Denies fever, chills, body aches, chest pain, palpitations, numbness or tingling sensation. Denies any other symptoms Is this a multiple visit Asthma Patient?: No Timing/Duration: getting worse Severity: moderate Past History - Past Medical History Allergies/Adverse Reactions: Allergies Allergy/AdvReac Type Severity Reaction Status Date / Time No Known Allergies Allergy Verified 06/05/19 12:34 Home Medications: Ambulatory Orders Alprazolam [Xanax] 0.25 mg PO PRN PRN 05/08/18 Amlodipine Besylate [Norvasc -] 5 mg PO DAILY 05/08/18 Carvedilol 12.5 mg PO BID 05/08/18 Sertraline HCl 75 mg PO DAILY 05/08/18 Simvastatin 20 mg PO HS 05/08/18 Albuterol Sulfate Inhaler - [Ventolin HFA Inhaler -] 1 - 2 inh PO Q4H PRN #1 inhaler 05/09/18 Clotrimazole [Mycelex -] 10 mg PO 5XD 12/01/18 Famotidine [Acid Controller] 20 mg PO BID 12/01/18 Fluticasone Prop 0.05% Nasal [Flonase -] 1 - 2 spray NS DAILY 12/01/18 Sucralfate Oral Suspension [Carafate Oral Suspension -] 1 gm PO DAILY PRN #100 ml 12/02/18 Albuterol 0.083% Nebulizer Salome [Ventolin 0.083%] 1 neb NEB Q4H PRN 06/05/19 Methylprednisolone [Medrol Dose Cain] 4 mg PO ASDIR #21 tablet 06/05/19 Montelukast Na [Singulair -] 10 mg PO DAILY #7 tablet 06/05/19 Asthma: Yes COPD: No GI Disorders: Yes HTN: Yes Hypercholesterolemia: Yes Liver Disease: (fatty liver) Psychiatric Problems: Yes (anxiety) Other medical history: aneurysm - Immunization History Immunization Up to Date: Yes - Psycho Social/Smoking Cessation Hx Smoking History: Current every day smoker Have you smoked in the past 12 months: No Number of Cigarettes Smoked Daily: 10 Information on smoking cessation initiated: No 'Breaking Loose' booklet given: 12/01/18 Hx Alcohol Use: No Drug/Substance Use Hx: No Substance Use Type: None Review of Systems - Review of Systems Able to Perform ROS?: Yes Is the patient limited [place] proficient: No Constitutional: No: Chills, Fever, Malaise HEENTM: Yes: Symptoms Reported, See HPI, Nose Congestion. No: Eye Pain, Blurred Vision, Tearing, Recent change in vision, Double Vision, Cataracts, Ear Pain, Ocular Prothesis, Ear Discharge, Nose Pain, Tinnitus, Nose Bleeding, Hearing Loss, Throat Pain, Throat Swelling, Mouth Pain, Dental Problems, Difficulty Swallowing, Mouth Swelling, Other Respiratory: Yes: Symptoms reported, See HPI, Cough, Wheezing. No: Orthopnea, Shortness of Breath, SOB with Exertion, SOB at Rest, Stridor, Productive cough, Hemoptysis, Other Cardiac (ROS): No: Symptoms Reported, See HPI, Chest Pain, Edema, Irregular Heart Rate, Lightheadedness, Palpitations, Syncope, Chest Tightness, Other ABD/GI: No: Symptoms Reported, Nausea, Vomiting Musculoskeletal: No: Symptoms Reported Integumentary: No: Symptoms Reported, Rash All Other Systems: Reviewed and Negative *Physical Exam - Vital Signs Last Vital Signs Temp Pulse Resp BP Pulse Ox 97.6 F 113 H 20 95/74 94 L 06/05/19 12:31 06/05/19 12:31 06/05/19 12:31 06/05/19 12:31 06/05/19 12:31 - Physical Exam 06/05/19 13:11 GENERAL: Well developed, well nourished. Awake and alert. No acute distress. HEENT: b/l nasal congestion. Normocephalic, atraumatic. PERRLA, EOMI. No conjunctival pallor. Sclera are non-icteric. Moist mucous membranes. Oropharynx is clear. NECK: Supple. Full ROM. CARDIOVASCULAR: Regular rate and rhythm. No murmurs, rubs, or gallops. Distal pulses are 2+ and symmetric. PULMONARY: No evidence of respiratory distress. Diffuse expiratory wheeze bilateral. No rales or rhonchi. ABDOMINAL: Soft. Non-tender. Non-distended. No rebound or guarding. No organomegaly. Normoactive bowel sounds. MUSCULOSKELETAL Normal range of motion at all joints. SKIN: Warm and dry. Normal capillary refill. No rashes. No cyanosis NEUROLOGICAL: Alert, awake, appropriate. Gait is normal without ataxia. PSYCHIATRIC: Cooperative. Good eye contact. Appropriate mood General Appearance: Yes: Nourished, Appropriately Dressed. No: Apparent Distress ED Treatment Course - RADIOLOGY Radiology Studies Ordered: Category Date Time Status CHEST PA & LAT [RAD] Stat Radiology 06/05/19 13:06 Ordered Medical Decision Making - Medical Decision Making 06/05/19 13:19 Patient with past medical history of asthma, GERD, hypertension and hyperlipidemia presented with complaint of over 3 weeks history of persistent cough and intermittent wheezing which she was being followed up by PCP and GI was told cough was likely caused by acid reflux. Patient had chest CT done over a month ago with normal results and reported her multiple checks x-ray with normal results. Patient was placed on Protonix by GI for cough but patient stopped taking medication after a week as she reports was not given clear instruction by GI on how long she is supposed to take medication for. Patient reported has been having persistent wheezing since yesterday with intermittent shortness of breath. Patient also reported nasal congestion, runny nose and cough with clear sputum. Patient reported doing home nebulizer treatment overnight and again this morning with minimal improvement. Denies fever, chills, body aches, chest pain, palpitations, numbness or tingling sensation. Denies any other symptoms Exam significant for diffuse expiratory wheeze with no acute respiratory distress. Patient afebrile. Bilateral nasal congestion on exam. Symptoms likely viral URI versus asthma exacerbation versus less likely pneumonia. DuoNeb with albuterol and Atrovent ordered with normal saline inhalation to help with wheezing. Chest x-ray ordered to rule out acute abnormality 06/05/19 14:14 Chest x-ray shows no acute infiltrate unchanged from last chest x-ray a month ago. Patient reports seeing lung splitter a month ago and all test done by lung splitter was negative. Patient stable for outpatient treatment for URI with Medrol pack due to wheezing and cough, patient will continue with Robitussin as needed for cough and will add singular daily due to history of asthma to prevent exacerbation with lung splitter follow-up. Discharge - Discharge Information Problems reviewed: Yes Clinical Impression/Diagnosis: Cough, URI, acute Asthma exacerbation Qualifiers: Asthma severity: moderate Asthma persistence: persistent Qualified Code(s): J45.41 - Moderate persistent asthma with (acute) exacerbation Condition: Improved Disposition: HOME - Admission No - Additional Discharge Information Prescriptions: Methylprednisolone [Medrol Dose Cain] 4 mg PO ASDIR #21 tablet Montelukast Na [Singulair -] 10 mg PO DAILY #7 tablet - Follow up/Referral Referrals: Abdirashid Rubin [Primary Care Provider] - - Patient Discharge Instructions Patient Printed Discharge Instructions: DI for Cough -- Adult, DI for Viral Upper Respiratory Infection -- Adult Additional Instructions: chest x-ray was normal and shows no pneumonia. The prescribed medication as prescribed for cough and congestion. Continue home acid reflux medication as discussed daily. Increase fluid intake. Follow-up with primary care as needed - Post Discharge Activity
== END 2019-06-05 14:26 | disposition home or self-care (01) ==
LOC: JER 12:30
PROC: 3E0F7GC Introduction of Other Therapeutic Substance into Respiratory Tract, Via Natural or Artificial Opening (ICD-10-PCS; principal; 2019-06-05)
PROC: 3E0F7GC Introduction of Other Therapeutic Substance into Respiratory Tract, Via Natural or Artificial Opening (ICD-10-PCS; 2019-06-05)
DX: J45.41 Moderate persistent asthma with (acute) exacerbation (principal); J06.9 Acute upper respiratory infection, unspecified; I10 Essential (primary) hypertension; E78.5 Hyperlipidemia, unspecified; K21.9 Gastro-esophageal reflux disease without esophagitis; F41.9 Anxiety disorder, unspecified; F17.210 Nicotine dependence, cigarettes, uncomplicated
CPT/HCPCS: 71046-TC-FY; 99282-25

== ENCOUNTER 2021-03-14 23:36 | Inpatient (IN) | payer OTHER, BC ==
[2021-03-14] MEDS ORDERED: ALBUTEROL SO4 0.083% IH SOL 2.5 MG/3 ML VIAL.NEB. NEB ONE (23:40)
[2021-03-14] MEDS ORDERED: methylPREDNISolone NA SUCC 125 MG/2 ML VIAL ONE (23:46)
[2021-03-14] MEDS ORDERED: SODIUM CHLORIDE 0.9% 500 ML INFUS.BAG IV ONE (23:52)
[2021-03-14 23:53] VITALS: BMI 34.3
[2021-03-14] MEDS ORDERED: methylPREDNISolone NA SUCC 125 MG/2 ML VIAL IVPUSH ONE (23:53)
[2021-03-15] MEDS: ALBUTEROL SO4 2.5/IPRATROPIUM 0.5 INH SOL 3 ML VIAL.NEB. NEB SCH ×6 (00:03→20:05)
[2021-03-15 00:08] LABS: VENOUS BASE EXCESS 1.3 mmol/L (-2-2); VENOUS O2 SATURATION 85.1 % (70-80); VENOUS PH 7.397 (7.310-7.410)
[2021-03-15 00:16] LABS: INR 1.18 (0.83-1.09); PROTHROMBIN TIME (PATIENT) 13.2 SEC (9.7-13.0)
[2021-03-15 00:18] LABS: ACTIVATED PTT 37.6 SECONDS (25.2-36.5)
[2021-03-15 00:27] LABS: CHLORIDE 109 mmol/L (98-107); SODIUM 144 mmol/L (136-145)
[2021-03-15 00:29] LABS: ALBUMIN 3.6 g/dl (3.4-5.0); ANION GAP 4 MMOL/L (8-16); BLOOD UREA NITROGEN 18.1 mg/dL (7-18); CALCIUM 8.5 mg/dL (8.5-10.1); CO2 31 mmol/L (21-32); GLUCOSE,RANDOM 125 mg/dL (74-106); MAGNESIUM 1.8 mg/dL (1.8-2.4)
[2021-03-15 00:32] LABS: CREATININE 0.9 mg/dL (0.55-1.3); SGOT/AST 14 U/L (15-37); SGPT/ALT 17 U/L (13-61)
[2021-03-15 00:34] LABS: BILIRUBIN,TOTAL 0.4 mg/dL (0.2-1); TOT PROT 7.4 g/dl (6.4-8.2)
[2021-03-15 00:35] LABS: ALK PHOS 81 U/L (45-117)
[2021-03-15] MEDS ORDERED: MAGNESIUM SULF 50% (8.12 MEQ/2 ML-1 GM VIAL) IVPB ONE (00:45)
[2021-03-15] MEDS ORDERED: AZITHROMYCIN IVPB 500 MG in DEXTROSE 5%-WATER - 250 ML IVPB ONE (00:47)
[2021-03-15] MEDS ORDERED: AZITHROMYCIN IVPB 500 MG/250 ML BAG IVPB ONE (01:00)
[2021-03-15] MEDS ORDERED: MAGNESIUM 1GM/D5W - 1 GM/100 ML IVPB IVPB ONE (01:00)
[2021-03-15 01:04] LABS: BASO % 0.8 % (0-2.0); HEMATOCRIT 36.5 % (32.4-45.2); HEMOGLOBIN 12.6 GM/dL (10.7-15.3); MCH 31.2 pg (25.7-33.7); MCHC 34.4 g/dl (32.0-36.0); MEAN CELL VOLUME 90.7 fl (80-96); MEAN PLT VOLUME 8.8 fl (7.5-11.1); MONO % 6.8 % (3.8-10.2); NEUT % 61.4 % (42.8-82.8); PLATELET COUNT 237 10^3/uL (134-434); RBC 4.02 M/mm3 (3.60-5.2); RDW 13.6 % (11.6-15.6); WHITE BLOOD COUNT 8.8 K/mm3 (4.0-10.0)
[2021-03-15] MEDS ORDERED: POTASSIUM CHLORIDE TABS 20 MEQ TABLET.ER (FP) PO ONE ×2 (01:26→01:39)
[2021-03-15] MEDS: BUDESONIDE/FORMETEROL FUMARATE 160/4.5 mcg INHALER IH SCH ×3 (02:07→21:28)
[2021-03-15 03:16] LABS: URINE APPEARANCE CLEAR; URINE BILIRUBIN NEGATIVE (NEGATIVE); URINE COLOR YELLOW; URINE GLUCOSE (UA) 1+ (NEGATIVE); URINE KETONE NEGATIVE (NEGATIVE); URINE LEUK ESTERASE NEGATIVE (NEGATIVE); URINE NITRITE NEGATIVE (NEGATIVE); URINE PROTEIN NEGATIVE (NEGATIVE); URINE UROBILINOGEN 0.2 mg/dL (0.2-1.0)
[2021-03-15] MEDS ORDERED: KCL 10 MEQ IVPB 10 MEQ/100 ML INFUS.BAG IVPB SCH (04:00)
[2021-03-15 08:08] LABS: ALBUMIN 3.6 g/dl (3.4-5.0); BLOOD UREA NITROGEN 15.4 mg/dL (7-18); CALCIUM 8.7 mg/dL (8.5-10.1)
[2021-03-15 08:09] LABS: MAGNESIUM 2.1 mg/dL (1.8-2.4)
[2021-03-15 08:12] LABS: CREATININE 0.9 mg/dL (0.55-1.3); PHOSPHOROUS 1.2 mg/dL (2.5-4.9)
[2021-03-15 08:13] LABS: BILIRUBIN,TOTAL 0.5 mg/dL (0.2-1); TOT PROT 7.3 g/dl (6.4-8.2)
[2021-03-15 08:19] LABS: BASO % 1.8 % (0-2.0); EOS % 0.1 % (0-4.5); HEMATOCRIT 35.6 % (32.4-45.2); HEMOGLOBIN 12.4 GM/dL (10.7-15.3); LYMPH % 10.5 % (8-40); MCH 31.8 pg (25.7-33.7); MCHC 34.9 g/dl (32.0-36.0); MEAN CELL VOLUME 91.3 fl (80-96); MEAN PLT VOLUME 8.9 fl (7.5-11.1); MONO % 0.5 % (3.8-10.2); NEUT % 87.1 % (42.8-82.8); PLATELET COUNT 228 10^3/uL (134-434); RDW 13.4 % (11.6-15.6); WHITE BLOOD COUNT 8.3 K/mm3 (4.0-10.0)
[2021-03-15] MEDS ORDERED: LISINOPRIL 5 MG TABLET ONE (08:59)
[2021-03-15] MEDS ORDERED: ALBUTEROL SO4 2.5/IPRATROPIUM 0.5 INH SOL 3 ML VIAL.NEB. NEB ONE (08:59)
[2021-03-15] MEDS: LISINOPRIL 10 MG TABLET PO SCH (09:15)
[2021-03-15] MEDS ORDERED: methylPREDNISolone NA SUCC 40 MG/1 ML VIAL IVPUSH SCH (10:00)
[2021-03-15] MEDS ORDERED: CARVEDILOL 12.5 MG TABLET (FP) PO SCH (10:00)
[2021-03-15] MEDS ORDERED: FAMOTIDINE 20 MG TABLET ONE (11:22)
[2021-03-15] MEDS ORDERED: POTASSIUM CHLORIDE TABS 10 MEQ TABLET.ER (FP) ONE (11:22)
[2021-03-15] MEDS ORDERED: ENOXAPARIN NA (PORCINE) 40 MG/0.4 ML DISP.SYRIN SQ ONE (11:23)
[2021-03-15] MEDS ORDERED: SERTRALINE HCL 50 MG TABLET (FP) ONE (11:23)
[2021-03-15] MEDS ORDERED: methylPREDNISolone NA SUCC 40 MG/1 ML VIAL ONE (11:23)
[2021-03-15] MEDS: SERTRALINE HCL 50 MG TABLET (FP) PO SCH (11:28)
[2021-03-15] MEDS: POTASSIUM CHLORIDE TABS 10 MEQ TABLET.ER (FP) PO SCH (11:28)
[2021-03-15] MEDS: ENOXAPARIN NA (PORCINE) 40 MG/0.4 ML DISP.SYRIN SQ SCH (11:28)
[2021-03-15] MEDS: methylPREDNISolone NA SUCC 40 MG/1 ML VIAL IVPUSH SCH ×2 (11:28→21:28)
[2021-03-15] MEDS: FAMOTIDINE 20 MG TABLET PO SCH (11:28)
[2021-03-15] MEDS ORDERED: NAPH,MB-DB/K PH,MBDB POWDER PACKET PO ONE (15:03)
[2021-03-15] MEDS: amLODIPine BESYLATE 5 MG TABLET (FP) PO SCH (21:28)
[2021-03-15] MEDS: MONTELUKAST NA 10 MG TABLET PO SCH (21:28)
[2021-03-15] MEDS: clonazePAM 0.25 MG ODT TABLETS SL PRN (21:33)
[2021-03-16] MEDS: LISINOPRIL 10 MG TABLET PO SCH (07:05)
[2021-03-16] MEDS: ALBUTEROL SO4 2.5/IPRATROPIUM 0.5 INH SOL 3 ML VIAL.NEB. NEB SCH ×4 (07:40→19:53)
[2021-03-16 09:58] LABS: HEMATOCRIT 35.7 % (32.4-45.2); HEMOGLOBIN 12.1 GM/dL (10.7-15.3); MCH 31.8 pg (25.7-33.7); MEAN CELL VOLUME 93.4 fl (80-96); MEAN PLT VOLUME 9.4 fl (7.5-11.1); PLATELET COUNT 228 10^3/uL (134-434); RBC 3.82 M/mm3 (3.60-5.2); RDW 13.3 % (11.6-15.6); WHITE BLOOD COUNT 11.1 K/mm3 (4.0-10.0)
[2021-03-16 10:21] LABS: CALCIUM 8.8 mg/dL (8.5-10.1)
[2021-03-16 10:22] LABS: ALBUMIN 3.6 g/dl (3.4-5.0); BLOOD UREA NITROGEN 13.7 mg/dL (7-18)
[2021-03-16 10:25] LABS: CREATININE 0.7 mg/dL (0.55-1.3)
[2021-03-16 10:27] LABS: BILIRUBIN,TOTAL 0.3 mg/dL (0.2-1); TOT PROT 7.3 g/dl (6.4-8.2)
[2021-03-16] MEDS: ENOXAPARIN NA (PORCINE) 40 MG/0.4 ML DISP.SYRIN SQ SCH ×2 (10:30→18:23)
[2021-03-16] MEDS: AZITHROMYCIN IVPB 500 MG/250 ML BAG IVPB SCH (10:30)
[2021-03-16] MEDS: FAMOTIDINE 20 MG TABLET PO SCH (10:30)
[2021-03-16] MEDS: SERTRALINE HCL 50 MG TABLET (FP) PO SCH (10:31)
[2021-03-16] MEDS: POTASSIUM CHLORIDE TABS 10 MEQ TABLET.ER (FP) PO SCH (10:31)
[2021-03-16] MEDS: BUDESONIDE/FORMETEROL FUMARATE 160/4.5 mcg INHALER IH SCH (11:11)
[2021-03-16] MEDS: methylPREDNISolone NA SUCC 40 MG/1 ML VIAL IVPUSH SCH ×2 (14:09→21:13)
[2021-03-16] MEDS: MONTELUKAST NA 10 MG TABLET PO SCH (21:13)
[2021-03-16] MEDS: amLODIPine BESYLATE 5 MG TABLET (FP) PO SCH (21:13)
[2021-03-16] MEDS: clonazePAM 0.25 MG ODT TABLETS SL PRN (21:15)
[2021-03-16] MEDS ORDERED: guaiFENesin/D-METHORPHAN HB 10 ML UNIT-DOSE CUPS PO PRN (22:53)
[2021-03-17] MEDS: methylPREDNISolone NA SUCC 40 MG/1 ML VIAL IVPUSH SCH (06:15)
[2021-03-17] MEDS: LISINOPRIL 10 MG TABLET PO SCH (06:15)
[2021-03-17] MEDS: ALBUTEROL SO4 2.5/IPRATROPIUM 0.5 INH SOL 3 ML VIAL.NEB. NEB SCH ×3 (07:36→15:56)
[2021-03-17] MEDS: SERTRALINE HCL 50 MG TABLET (FP) PO SCH (09:54)
[2021-03-17] MEDS: FAMOTIDINE 20 MG TABLET PO SCH (09:54)
[2021-03-17] MEDS: POTASSIUM CHLORIDE TABS 10 MEQ TABLET.ER (FP) PO SCH (09:54)
[2021-03-17] MEDS: ENOXAPARIN NA (PORCINE) 40 MG/0.4 ML DISP.SYRIN SQ SCH (09:55)
[2021-03-17] MEDS: AZITHROMYCIN IVPB 500 MG/250 ML BAG IVPB SCH (09:58)
[2021-03-17 15:30] VITALS: BP 120/63; PULSE 57; TEMP 97.9
== END 2021-03-17 17:42 | disposition home or self-care (01) | DRG 202 ==
LOC: JER 23:36 → MERGE 23:52 → JERBED 23:52 → J8W 03-15 11:58
PROVIDERS: ADMIT Internal Medicine; ATTEND Internal Medicine
DX: J45.41 Moderate persistent asthma with (acute) exacerbation (principal); J96.01 Acute respiratory failure with hypoxia; I10 Essential (primary) hypertension; E66.9 Obesity, unspecified; Z68.34 Body mass index [BMI] 34.0-34.9, adult; K21.9 Gastro-esophageal reflux disease without esophagitis; F41.9 Anxiety disorder, unspecified; E87.6 Hypokalemia; J44.9 Chronic obstructive pulmonary disease, unspecified
CPT/HCPCS: 36415; 71046-TC-FY; 80053; 81003; 82803; 83036; 83735; 83880; 84100; 84133; 84484; 85025; 85027; 85610; 85730; 93005; 93010; 94640; 94761; 99285-25; C9803; U0003; U0005

== ENCOUNTER 2022-03-10 00:50 | Observation (INO) | payer OTHER, BC ==
[2022-03-10 01:03] VITALS: BMI 31.7
[2022-03-10] MEDS ORDERED: ALBUTEROL SO4 2.5/IPRATROPIUM 0.5 INH SOL 3 ML VIAL.NEB. NEB ONE ×3 (01:12→11:07)
[2022-03-10] MEDS: ALBUTEROL SO4 2.5/IPRATROPIUM 0.5 INH SOL 3 ML VIAL.NEB. NEB SCH ×6 (01:30→11:10)
[2022-03-10] MEDS ORDERED: MAGNESIUM SULF 50% (8.12 MEQ/2 ML-1 GM VIAL) IVPB ONE (01:47)
[2022-03-10 02:44] LABS: BASO % 0.7 % (0-2.0); HEMATOCRIT 37.4 % (32.4-45.2); LYMPH % 15.9 % (8-40); MCH 32.2 pg (25.7-33.7); MCHC 34.7 g/dl (32.0-36.0); MEAN CELL VOLUME 92.9 fl (80-96); MEAN PLT VOLUME 8.8 fl (7.5-11.1); MONO % 10.8 % (3.8-10.2); NEUT % 72.6 % (42.8-82.8); PLATELET COUNT 248 10^3/uL (134-434); RBC 4.03 M/mm3 (3.60-5.2); RDW 13.2 % (11.6-15.6); WHITE BLOOD COUNT 8.9 K/mm3 (4.0-10.0)
[2022-03-10 03:04] LABS: CALCIUM 8.7 mg/dL (8.5-10.1)
[2022-03-10 03:05] LABS: ALBUMIN 3.6 g/dl (3.4-5.0); BLOOD UREA NITROGEN 22.3 mg/dL (7-18)
[2022-03-10 03:08] LABS: CREATININE 0.7 mg/dL (0.55-1.3)
[2022-03-10 03:09] LABS: BILIRUBIN,TOTAL 0.3 mg/dL (0.2-1)
[2022-03-10] MEDS ORDERED: ACETAMINOPHEN 1000 MG/100 ML BAG IVPB ONE (05:11)
[2022-03-10] MEDS ORDERED: ACETAMINOPHEN 325 MG TABLET (FP) ONE (05:12)
[2022-03-10] MEDS ORDERED: methylPREDNISolone NA SUCC 40 MG/1 ML VIAL IVPUSH ONE (05:13)
[2022-03-10] MEDS ORDERED: ACETAMINOPHEN 500 MG TABLET (FP) PO ONE (05:13)
[2022-03-10] MEDS ORDERED: clonazePAM 0.25 MG ODT TABLETS SL PRN (05:18)
[2022-03-10] MEDS ORDERED: methylPREDNISolone NA SUCC 125 MG/2 ML VIAL ONE (05:36)
[2022-03-10 07:18] VITALS: RESP 20
[2022-03-10] MEDS: INSULIN SLIDING SCALE (NOVOLOG) 1 VIAL SQ SCH ×2 (07:36→11:11)
[2022-03-10] MEDS ORDERED: methylPREDNISolone NA SUCC 40 MG/1 ML VIAL ONE (09:18)
[2022-03-10] MEDS ORDERED: amLODIPine BESYLATE 5 MG TABLET (FP) ONE (09:18)
[2022-03-10] MEDS ORDERED: SERTRALINE HCL 50 MG TABLET (FP) ONE (09:18)
[2022-03-10] MEDS ORDERED: ENOXAPARIN NA (PORCINE) 40 MG/0.4 ML DISP.SYRIN SQ ONE (09:18)
[2022-03-10] MEDS ORDERED: PATIENT'S OWN MEDICATION (NON-FORMULARY) (Fluticasone/Salmeterol [Advair Hfa 45-21 Mcg Inh PO SCH (10:00)
[2022-03-10] MEDS ORDERED: CARVEDILOL 12.5 MG TABLET (FP) PO SCH (10:00)
[2022-03-10] MEDS ORDERED: LORATADINE 10 MG TABLET PO SCH (10:00)
[2022-03-10] MEDS ORDERED: ENOXAPARIN NA (PORCINE) 40 MG/0.4 ML DISP.SYRIN SQ SCH (10:00)
[2022-03-10] MEDS ORDERED: SERTRALINE HCL 50 MG TABLET (FP) PO SCH (10:00)
[2022-03-10] MEDS ORDERED: amLODIPine BESYLATE 5 MG TABLET (FP) PO SCH (10:00)
[2022-03-10] MEDS ORDERED: methylPREDNISolone NA SUCC 40 MG/1 ML VIAL IVPUSH SCH (10:00)
[2022-03-10] MEDS: BUDESONIDE/FORMETEROL FUMARATE 160/4.5 mcg INHALER IH SCH ×2 (10:19→10:31)
[2022-03-10 12:49] VITALS: BP 110/59; PULSE 75; TEMP 97.7
[2022-03-10] MEDS ORDERED: ATORVASTATIN CA 10 MG TABLET (FP) PO SCH (22:00)
[2022-03-10] MEDS ORDERED: MONTELUKAST NA 10 MG TABLET PO SCH (22:00)
== END 2022-03-10 13:08 | disposition home or self-care (01) ==
LOC: JER 00:50 → JERBED 02:47 → INTOOBSV 02:47
PROVIDERS: ADMIT Internal Medicine; ATTEND Nurse Practitioner Acute Care
PROC: 3E0F7GC Introduction of Other Therapeutic Substance into Respiratory Tract, Via Natural or Artificial Opening (ICD-10-PCS; principal; 2022-03-10)
PROC: 3E033GC Introduction of Other Therapeutic Substance into Peripheral Vein, Percutaneous Approach (ICD-10-PCS; 2022-03-10)
DX: J96.01 Acute respiratory failure with hypoxia (principal); E11.9 Type 2 diabetes mellitus without complications; E78.5 Hyperlipidemia, unspecified; I10 Essential (primary) hypertension; K21.9 Gastro-esophageal reflux disease without esophagitis; E66.8 Other obesity; Z68.31 Body mass index [BMI] 31.0-31.9, adult; J45.41 Moderate persistent asthma with (acute) exacerbation; F17.210 Nicotine dependence, cigarettes, uncomplicated
CPT/HCPCS: 0241U-QW; 36415; 71045-TC-FY; 80053; 85025; 93005; 93010; 94640; 96374; 96375; 96376; 99285-25; G0378

== ENCOUNTER 2022-06-19 05:08 | Day surgery (SDC) | payer OTHER, BC ==
[2022-06-18 12:36] VITALS: BMI 31.7
[2022-06-19 13:44] VITALS: TEMP 98.1
[2022-06-19 14:29] VITALS: BP 98/66; PULSE 72; RESP 20
== END 2022-06-19 14:25 | disposition home or self-care (01) ==
LOC: JASU-ENDO 05:08
PROVIDERS: ATTEND Internal Medicine Gastroenterology
PROC: 0DB78ZX Excision of Stomach, Pylorus, Via Natural or Artificial Opening Endoscopic, Diagnostic (ICD-10-PCS; principal; 2022-06-19 13:00)
DX: K29.90 Gastroduodenitis, unspecified, without bleeding (principal); K29.80 Duodenitis without bleeding; K29.50 Unspecified chronic gastritis without bleeding
CPT/HCPCS: 88305-TC; 88342-TC

== ENCOUNTER 2022-11-28 07:46 | Day surgery (SDC) | payer OTHER, BC ==
[2022-11-27 13:53] VITALS: BMI 31.2
[2022-11-28 08:05] VITALS: RESP 18
[2022-11-28 08:53] VITALS: TEMP 96.6
[2022-11-28 09:10] VITALS: BP 114/76; PULSE 79
== END 2022-11-28 09:25 | disposition home or self-care (01) ==
LOC: FASU-ENDO 07:46
PROVIDERS: ATTEND Internal Medicine Gastroenterology
PROC: 0DB68ZX Excision of Stomach, Via Natural or Artificial Opening Endoscopic, Diagnostic (ICD-10-PCS; 2022-11-28)
PROC: 0DB48ZX Excision of Esophagogastric Junction, Via Natural or Artificial Opening Endoscopic, Diagnostic (ICD-10-PCS; 2022-11-28)
PROC: 0DB98ZX Excision of Duodenum, Via Natural or Artificial Opening Endoscopic, Diagnostic (ICD-10-PCS; principal; 2022-11-28 08:38)
DX: K29.50 Unspecified chronic gastritis without bleeding (principal); K20.90 Esophagitis, unspecified without bleeding; K44.9 Diaphragmatic hernia without obstruction or gangrene
CPT/HCPCS: 88305-TC; 88342-TC